=== PATIENT | female | born 1980 | race Caucasian/White ===

== ENCOUNTER 2019-08-24 09:31 | Emergency (ER) | payer MEDICAID, SELFPAY ==
[2019-08-24 09:33] VITALS: BP 148/92; PULSE 89; RESP 16; TEMP 36.8; O2SAT 98; BMI 22.6
--- NOTE | 2019-08-24 10:34 | HMH.EDHA ---
ED Disposition Clinical Impression: Headache, Infected dental carries, Abscessed tooth Disposition: Home, Self-Care Condition on Discharge: Good Prescriptions: clindamycin HCL [Clindamycin HCl 300mg Cap] 300 mg PO Q6 10 Days #40 cap Transmission Status: Pending to [facility] Nabumetone 750 mg PO BID 10 Days #20 tab Transmission Status: Pending to [facility] Acetaminophen with Codeine [Tylenol with Codeine #3 tablet] 1 each PO QID 3 Days #12 tablet Tizanidine HCl [Zanaflex 4mg tablet] 4 mg PO TID 10 Days #30 tab Transmission Status: Pending to [facility] Referrals: Kristian Alvares MD [Primary Care Provider] - - Critical Care Critical Care Time: No Attestation: On 08/24/19, the high probability of a clinically significant, sudden or life threatening deterioration of the following system(s) required my full and direct attention, intervention and personal management. The time I documented below is in addition to time spent performing reported procedures but includes the following listed in this critical care notation. Medical Decision Making - Medical Records Medical records reviewed: Yes: I reviewed the patient's medical records. - Randal Inquiry Pt receiving controlled substance: No Vital Signs: 08/24/19 09:33 Temperature 98.3 F Temperature Source Oral Pulse Rate [Right Radial] 89 Respiratory Rate 16 Blood Pressure [Right Arm] 148/92 H Blood Pressure Mean [Right Arm] 110 Blood Pressure Source [Right Arm] Automatic Cuff Blood Pressure Position [Right Arm] Sitting 02 Sat by Pulse Oximetry 98 Oxygen Delivery Method Room Air - Lab Data Lab results reviewed: Yes: I reviewed the patient's lab results. Headache HPI - General Chief Complaint: Headache Stated Complaint: headache above right eye Time Seen by Provider: 08/24/19 10:34 Mode of Arrival: Ambulatory Source of Information: Patient Limitations: No Limitations Description of Symptoms (Recalled from ER Triage Doc. by RN): C/O RT SIDE PAGE X3 DAYS - History of Present Illness HPI Narrative: A pleasant 39-year-old female presents the ED with acute onset of headache and right-sided jaw pain. Patient states about a year ago she did have 1 of her wisdom teeth pulled and since then she has noticed some draining over the last 3 to 4 days she is noticed significant draining with some purulent material as well and then she woke up yesterday with a slight headache and is progressively gotten worse as the days gone on this is on the right temporal area just adjacent to the maxillary area where she had a tooth pulled. She rates her pain 10 out of 10 presently she classifies it as sharp and a pressure-like sensation and she describes no alleviating factors. Exacerbating factors do include movement chewing and bright lights. SomewhatPatient denies any recent cough or shortness of breath, patient denies any sore throat or headache, patient denies any loss of taste or smell, patient denies any malaise or fatigue, patient denies any abdominal pain nausea vomiting or diarrhea. - Related Data Previous Rx's Medication Instructions Recorded Ondansetron [Zofran 4mg ODT] 4 mg PO Q8HP PRN #20 tab.rapdis 03/04/19 Ibuprofen [Ibuprofen 800mg 800 mg PO TIDP PRN #30 tab 06/07/19 Tablet] Methocarbamol [Robaxin 500mg Tab] 500 mg PO TIDP PRN #30 tab 06/07/19 Acetaminophen with Codeine 1 each PO QID 3 Days #12 tablet 08/24/19 [Tylenol with Codeine #3 tablet] Nabumetone 750 mg PO BID 10 Days #20 tab 08/24/19 Tizanidine HCl [Zanaflex 4mg 4 mg PO TID 10 Days #30 tab 08/24/19 tablet] clindamycin HCL [Clindamycin HCl 300 mg PO Q6 10 Days #40 cap 08/24/19 300mg Cap] Allergies Allergy/AdvReac Type Severity Reaction Status Date / Time No Known Allergies Allergy Verified 08/18/18 12:40 [facility] History - Hepatitis A Screen Drug use history?: No High risk sexual behaviors?: No History of sexually tr
[2019-08-24 11:00] VITALS: BP 132/89; PULSE 87; RESP 16; TEMP 36.8; O2SAT 100
== END 2019-08-24 11:04 | disposition home or self-care (01) ==
PROVIDERS: Emergency Provider Family Medicine; PCP Family Medicine
DX: K04.7 Periapical abscess without sinus (principal); J45.909 Unspecified asthma, uncomplicated; R51 Headache; F17.210 Nicotine dependence, cigarettes, uncomplicated; Z79.899 Other long term (current) drug therapy
CPT/HCPCS: 99281

== ENCOUNTER 2019-11-30 17:31 | Emergency (ER) | payer OTHER, SELFPAY ==
[2019-11-30 18:01] VITALS: BP 137/91; PULSE 78; RESP 20; TEMP 36.6; O2SAT 99; BMI 22.6
--- NOTE | 2019-11-30 18:40 | HMH.EDUTC ---
[facility] Disposition Clinical Impression: Upper respiratory infection Qualifiers: URI type: unspecified URI Qualified Code(s): J06.9 - Acute upper respiratory infection, unspecified Disposition: Home, Self-Care Condition on Discharge: Good Instructions: Sore Throat, DI for Sinusitis, Sinusitis Additional Instructions: *Monitor Temp, Over the counter Motrin or Tylenol as directed/as needed Tylenol every 4 hours and Motrin every 6 hours (as long as your family doctor has told you that you can take it) for fever or pain. and straight to ER if unable to lower temp less than 101.0 after medication given *Warm salt water gargles may help to soothe the throat *Throat Lozenges *Warm fluids like tea with honey may help to soothe the throat *Sleep elevated *Humidifier/Vaporizer *Flonase 2 sprays in each nostril daily but be aware that it may take 2-3 days before you notice improvement Follow up IMMEDIATELY for new or worsening symptoms or no Noticeable improvement over the next 48-72 hours. 911 for difficulty breathing or swallowing Prescriptions: Fluticasone Propionate [Flonase 50mcg nasal spray 16gm] 1 - 2 spr NS DAILY #1 bottle Transmission Status: [facility] methylPREDNISolone [Medrol 4mg tab] 4 mg PO DIRECTED #21 tab Transmission Status: Pending to [facility] Azithromycin [Z-Christian 250mg Tab] 250 mg PO DIRECTED #6 tab Transmission Status: Pending to [facility] Referrals: Kristian Alvares MD [Primary Care Provider] - As needed Forms: Work/School Release Time of Disposition: 18:44 Medical Decision Making - Randal Inquiry Pt receiving controlled substance: No Randal was queried for this patient: No Vital Signs: 11/30/19 18:01 Temperature 97.8 F Temperature Source Oral Pulse Rate [Right Brachial] 78 Respiratory Rate 20 Blood Pressure [Right Arm] 137/91 H Blood Pressure Mean [Right Arm] 106 Blood Pressure Source [Right Arm] Automatic Cuff Blood Pressure Position [Right Arm] Sitting 02 Sat by Pulse Oximetry 99 Oxygen Delivery Method Room Air [facility] HPI - General Stated complaint: Possible sinus infection Time Seen by Provider: 11/30/19 18:40 Mode of Arrival: Ambulatory Source of Information: Patient Limitations: No Limitations Description of Symptoms (Recalled from Triage Doc. by RN): PATIENT C/O SINUS PRESSURE/PAIN X 2 DAYS HEENT Symptoms (Recalled from RN notes): Yes Resp Symptoms (Recalled from RN notes): No Skin Symptoms (Recalled from RN notes): No MS Symptoms (Recalled from RN notes): No Functional Status (Recalled from RN notes): WNL - History of Present Illness Provider Complaint: Patient states that she feels like she has been fighting a sinus infection for the last week and for the last couple of days it has got worse States that she has been having sinus pain and pressure and sore throat States that she feels like it is getting worse and worried that it would turn into sinus infection so she came on in - Related Data Previous Rx's Medication Instructions Recorded Azithromycin [Z-Christian 250mg Tab] 250 mg PO DIRECTED #6 tab 11/30/19 Fluticasone Propionate [Flonase 1 - 2 spr NS DAILY #1 bottle 11/30/19 50mcg nasal spray 16gm] methylPREDNISolone [Medrol 4mg 4 mg PO DIRECTED #21 tab 11/30/19 tab] Allergies Allergy/AdvReac Type Severity Reaction Status Date / Time No Known Allergies Allergy Verified 08/18/18 12:40 - Worker's Comp Is this a Worker's Comp case?: No [facility] History - Hepatitis A Screen Drug use history?: No High risk sexual behaviors?: No History of sexually transmitted infection?: No Currently employed?: No Childcare worker?: No Do you have indoor plumbing?: Yes Do you have electricity?: Yes Attestation statement:: This patient has been screened for Hepatitis A risk factors. I have reviewed the patient's past medical history: Yes Medical History: Reports:: Asthma Denies:: Cancer, Diabetes Melli
[2019-11-30 18:48] VITALS: BP 137/91; PULSE 78; RESP 20; TEMP 36.6; O2SAT 99
== END 2019-11-30 18:49 | disposition home or self-care (01) ==
PROVIDERS: Emergency Provider Nurse Practitioner; PCP Family Medicine
DX: J06.9 Acute upper respiratory infection, unspecified (principal); J45.909 Unspecified asthma, uncomplicated; F17.210 Nicotine dependence, cigarettes, uncomplicated
CPT/HCPCS: 99201

== ENCOUNTER → 2019-12-24 17:06 | Outpatient (CLI) | payer OTHER, SELFPAY | PROVIDERS: PCP Family Medicine; Visit Provider Family Medicine | DX: R00.2 Palpitations (principal) | CPT/HCPCS: 93270 ==

== ENCOUNTER 2020-01-12 17:23 | Emergency (ER) | payer OTHER, SELFPAY ==
[2020-01-12 17:39] VITALS: BP 143/85; PULSE 88; RESP 18; TEMP 36.7; O2SAT 97; BMI 25.8
--- NOTE | 2020-01-12 17:41 | XR_ITS ---
PROCEDURE: XR CHEST 2V CLINICAL HISTORY: COUGH COMPARISON: No exams were available for comparison FINDINGS: The cardiomediastinal silhouette and pulmonary vascularity are within normal limits. No lobar consolidation or collapse. There is minimal nodular opacity noted in the left lower lung zone overlying the 9th rib possibly due to summation artifact or even nipple shadow. No acute bony abnormalities. IMPRESSION: No definite acute finding. Faint nodular opacity left lower lobe which could be due to developing nodule or nipple shadow. Follow-up chest may confirm stability Dictated by: Layo Dixon MD 01/12/2020 18:27 Layo Dixon MD in [place] 01/12/2020 18:27
--- NOTE | 2020-01-12 18:14 | HMH.EDUTC ---
[facility] Clinical Impression: Bronchitis Disposition: Home, Self-Care Condition on Discharge: Good Instructions: Acute Bronchitis, DI for Acute Bronchitis Additional Instructions: Drink plenty of fluids. Take tylenol or ibuprofen for pain or fever. Take the medications as directed. Follow up with your regular doctor. GO TO THE ER FOR ANY WORSENING SYMPTOMS Don't start the oral steroids until tomorrow, since you had the shot here today. The cough medication (promethazine dm) will make you drowsy, so don't drive or operate heavy machinery after taking it. Prescriptions: Promethazine/Dextromethorphan [Promethazine-Dm Syrup] 5 ml PO Q6HP PRN #240 syrup PRN Reason: Cough Transmission Status: Received by [facility] Amoxicillin/Potassium Clav [Augmentin 875-125 Tablet] 1 tab PO Q12H 10 Days #20 tab Transmission Status: Received by [facility] methylPREDNISolone [Medrol] 4 mg PO DIRECTED 6 Days #21 tab.ds.pk Transmission Status: Received by [facility] Referrals: Kristian Alvares MD [Primary Care Provider] - Forms: Work/School Release Time of Disposition: 18:31 Medical Decision Making - Medical Records Medical records reviewed: No: I reviewed the patient's medical records. - Randal Inquiry Pt receiving controlled substance: No Vital Signs: 01/12/20 17:39 01/12/20 18:32 Temperature 98.1 F 98.1 F Temperature Source Oral Oral Pulse Rate 88 Pulse Rate [Radial] 88 Respiratory Rate 18 18 Blood Pressure 143/85 H Blood Pressure [Right Arm] 143/85 H Blood Pressure Mean [Right Arm] 104 Blood Pressure Source Automatic Cuff Blood Pressure Source [Right Arm] Automatic Cuff Blood Pressure Position Sitting Blood Pressure Position [Right Arm] Sitting 02 Sat by Pulse Oximetry 97 Oxygen Delivery Method Room Air Room Air Orders (Tests/Meds): ED MEDICATIONS Discontinued Medications Generic Name Dose Route Start Last Admin Trade Name Freq PRN Reason Stop Dose Admin Ceftriaxone Sodium 1 gm 01/12/20 18:19 01/12/20 18:30 Ceftriaxone 1gm Vial IM 01/12/20 18:20 1 gm ONCE ONE Administration Protocol Lidocaine HCl 0 ml 01/12/20 18:19 01/12/20 18:30 Lidocaine 1% 5ml Pf Vial IM 01/12/20 18:20 2.1 ml ONCE ONE Administration Methylprednisolone Sodium Succinate 125 mg 01/12/20 18:19 01/12/20 18:30 Methylprednisolone Sod Succ 125mg Vial IM 01/12/20 18:20 125 mg ONCE ONE Administration [facility] [place] - General Stated complaint: Congestion Time Seen by Provider: 01/12/20 18:14 Mode of Arrival: Ambulatory Source of Information: Patient Limitations: No Limitations Description of Symptoms (Recalled from Triage Doc. by RN): was seen approx 2 weeks ago and was diagnosed with an URI. States that she felt as if she was getting better but now she is having pain when she breathes and still has a cough, denies any fever or other symptoms. HEENT Symptoms (Recalled from RN notes): No Resp Symptoms (Recalled from RN notes): Yes Skin Symptoms (Recalled from RN notes): No MS Symptoms (Recalled from RN notes): No Functional Status (Recalled from RN notes): wnl - History of Present Illness Provider Complaint: She states that over the past 3 days she has began to cough and have some wheezing. She has a history of asthma. She denies any fever or body aches. - Related Data Previous Rx's Medication Instructions Recorded Azithromycin [Z-Christian 250mg Tab] 250 mg PO DIRECTED #6 tab 11/30/19 Fluticasone Propionate [Flonase 1 - 2 spr NS DAILY #1 bottle 11/30/19 50mcg nasal spray 16gm] methylPREDNISolone [Medrol 4mg 4 mg PO DIRECTED #21 tab 11/30/19 tab] Amoxicillin/Potassium Clav 1 tab PO Q12H 10 Days #20 tab 01/12/20 [Augmentin 875-125 Tablet] Promethazine/Dextromethorphan 5 ml PO Q6HP PRN #240 syrup 01/12/20 [Promethazine-Dm Syrup] methylPREDNISolone [Medrol] 4 mg PO DIRECTED 6 Days #21 01/12/20 tab.ds.pk
[2020-01-12 18:32] VITALS: BP 143/85; PULSE 88; RESP 18; TEMP 36.7; O2SAT 97
== END 2020-01-12 18:42 | disposition home or self-care (01) ==
PROVIDERS: Emergency Provider Nurse Practitioner Family; PCP Family Medicine
DX: J20.9 Acute bronchitis, unspecified (principal); F17.210 Nicotine dependence, cigarettes, uncomplicated
CPT/HCPCS: 71046; 96372; 99202

== ENCOUNTER 2020-08-07 23:13 | Emergency (ER) | payer OTHER, SELFPAY ==
[2020-08-07 23:13] VITALS: BP 151/97; PULSE 83; RESP 18; TEMP 36.8; O2SAT 97; BMI 26.6
--- NOTE | 2020-08-07 23:24 | XR_ITS ---
PROCEDURE INFORMATION: Exam: XR Chest Exam date and time: 08/07/2020 11:24 PM Age: 40 years old Clinical indication: Cough and other: Congestion; Patient HX: Cough congestion TECHNIQUE: Imaging protocol: XR of the chest. Views: 2 views. COMPARISON: CR XR CHEST 2V 01/12/2020 5:47 PM FINDINGS: Lungs: Unremarkable. No consolidation. Pleural spaces: Unremarkable. No pleural effusion. No pneumothorax. Heart/Mediastinum: Unremarkable. No cardiomegaly. Bones/joints: Unremarkable. IMPRESSION: No acute findings.
[2020-08-07 23:30] VITALS: PULSE 108; PULSE 112
--- NOTE | 2020-08-08 00:44 | HMH.EDSOB ---
ED Disposition Clinical Impression: Bronchitis Disposition: Home, Self-Care Condition on Discharge: Good Instructions: DI for Acute Bronchitis Additional Instructions: fluids and see pcp for follow up Prescriptions: Cefdinir [Omnicef 300mg Capsule] 300 mg PO BID #14 cap Transmission Status: Pending to [facility] predniSONE [Prednisone 20mg Tab] 20 mg PO BID #10 tab Transmission Status: Pending to [facility] Referrals: Kristian Alvares MD [Primary Care Provider] - - Critical Care Critical Care Time: No Attestation: On 08/07/20, the high probability of a clinically significant, sudden or life threatening deterioration of the following system(s) required my full and direct attention, intervention and personal management. The time I documented below is in addition to time spent performing reported procedures but includes the following listed in this critical care notation. Medical Decision Making - Medical Records Medical records reviewed: Yes: I reviewed the patient's medical records. - Randal Inquiry Pt receiving controlled substance: No Vital Signs: 08/07/20 23:13 08/07/20 23:30 Temperature 98.3 F Temperature Source Oral Pulse Rate 108 H Pulse Rate [Right] 83 Respiratory Rate 18 Blood Pressure [Right Arm] 151/97 H Blood Pressure Mean [Right Arm] 115 02 Sat by Pulse Oximetry 97 - Lab Data Lab results reviewed: Yes: I reviewed the patient's lab results. Orders (Tests/Meds): ED MEDICATIONS Discontinued Medications Generic Name Dose Route Start Last Admin Trade Name Freq PRN Reason Stop Dose Admin Albuterol/Ipratropium 3 ml 08/07/20 23:25 08/07/20 23:29 Ipratropium/Albuterol 3 Ml Neb IH 08/07/20 23:26 3 ml ONCE ONE Administration Ceftriaxone Sodium 1 gm 08/08/20 01:12 08/08/20 01:17 Ceftriaxone 1gm Vial IM 08/08/20 01:13 1 gm ONCE ONE Administration Protocol Ceftriaxone Sodium 1 gm/ 50 mls @ 100 mls/hr 08/08/20 01:00 08/08/20 01:20 Sodium Chloride IV 08/22/20 00:59 Not Given Q24H CASSANDRA Protocol Lidocaine HCl 0 ml 08/08/20 01:12 08/08/20 01:18 Lidocaine 1% 5ml Pf Vial IM 08/08/20 01:13 2.1 ml ONCE ONE Administration Methylprednisolone Sodium Succinate 125 mg 08/07/20 23:29 08/08/20 00:08 Methylprednisolone Sod Succ 125mg Vial IM 08/07/20 23:30 125 mg ONCE ONE Administration - Radiology Data #1 Image(s): Chest Image Reviewed: Yes I reviewed the patient's radiology image Preliminary Findings: Normal/NAD Resp/SOB HPI - General Chief Complaint: Upper Respiratory Infection Stated Complaint: congestion,body aches, Time Seen by Provider: 08/08/20 00:00 Mode of Arrival: Ambulatory Source of Information: Patient, Medical Record Limitations: No Limitations Description of Symptoms (Recalled from ER Triage Doc. by RN): pt c/o head and chest congestion since yesterday morning - History of Present Illness uri sx and congestion over the last 24 hrs MD Complaint: shortness of breath, cough Onset (ago): day(s) Severity: moderate Associated symptoms: denies other symptoms Treatment prior to arrival: none - Related Data Home oxygen amount: none Home Medications Medication Instructions Recorded Confirmed Albuterol Sulfate [Proventil Hfa] 6.7 gm IH DAILY 08/07/20 08/07/20 Ipratropium/Albuterol Sulfate 2 puff IH QID 08/07/20 08/07/20 [Combivent Respimat Inh] Previous Rx's Medication Instructions Recorded Cefdinir [Omnicef 300mg Capsule] 300 mg PO BID #14 cap 08/08/20 predniSONE [Prednisone 20mg 20 mg PO BID #10 tab 08/08/20 Tab] Allergies Allergy/AdvReac Type Severity Reaction Status Date / Time No Known Allergies Allergy Verified 08/18/18 12:40 [facility] History - Hepatitis A Screen Drug use history?: No High risk sexual behaviors?: No History of sexually transmitted infection?: No Currently employed?: No Childcare worker?: No Do you mohr
[2020-08-08 01:46] VITALS: BP 139/87; PULSE 90; RESP 16; TEMP 36.8; O2SAT 98
== END 2020-08-08 01:48 | disposition home or self-care (01) ==
PROVIDERS: Emergency Provider Emergency Medicine; PCP Family Medicine
DX: J20.9 Acute bronchitis, unspecified (principal)
CPT/HCPCS: 71046; 96372; 99282

== ENCOUNTER 2020-10-01 18:33 | Emergency (ER) | payer OTHER, SELFPAY ==
[2020-10-01 18:34] VITALS: BP 165/92; PULSE 125; RESP 16; TEMP 36.9; O2SAT 96; BMI 27.9
--- NOTE | 2020-10-01 18:48 | HMH.EDGENADL ---
ED Disposition <Irena Flores - Last Filed: 10/01/20 18:48> Condition on Discharge: Good - Critical Care Critical Care Time: No <Adrian Farmer - Last Filed: 10/01/20 21:56> Clinical Impression: Atypical chest pain, Left flank pain Disposition: Home, Self-Care Additional Instructions: Follow-up with your primary care provider, call for appointment. A pulmonary nodule (spot on the lung) was discovered during your evaluation today. It is recommended that you follow-up with a primary care provider for further evaluation. Additional instructions for CHEST PAIN: See your physician as soon as possible for further evaluation. Return immediately if worsening chest pain, vomiting, shortness of breath, fever, coughing of blood. Referrals: Kristian Alvares MD [Primary Care Provider] - Attestation: On 10/01/20, the high probability of a clinically significant, sudden or life threatening deterioration of the following system(s) required my full and direct attention, intervention and personal management. The time I documented below is in addition to time spent performing reported procedures but includes the following listed in this critical care notation. Medical Decision Making - Randal Inquiry Pt receiving controlled substance: No - Lab Data Result diagrams: 10/01/20 19:30 10/01/20 19:30 - CT Data CT Scan: Abdomen, Pelvis Time Received: 21:[address] Reviewed: Yes: I have viewed the radiologist's interpretation <Adrian Farmer - Last Filed: 10/01/20 21:56> Vital Signs: 10/01/20 18:34 Temperature 98.5 F Temperature Source Oral Pulse Rate [Radial] 125 H Respiratory Rate 16 Blood Pressure [Right Radial Artery] 165/92 H Blood Pressure Mean [Right Radial Artery] 116 Blood Pressure Position [Right Radial Artery] Sitting 02 Sat by Pulse Oximetry 96 Oxygen Delivery Method Room Air - Lab Data Lab Results 10/01/20 18:40: Urine Color Yellow, Urine Appearance Clear, Urine pH 5.5, Ur Specific [place] <= 1.005, Urine Protein Negative, Urine Glucose (UA) Negative, Urine Ketones Negative, Urine Blood Negative, Urine Nitrate Negative, Urine Bilirubin Negative, Urine Urobilinogen 0.2, Ur Leukocyte Esterase Negative, Urine RBC 3-5, Urine WBC None, Ur Squamous Epith Cells 3-5, Urine Bacteria None 10/01/20 18:40: Urine Opiates Screen Negative, Urine Methadone Screen Negative, Ur Barbituates Screen Negative, Ur Phencyclidine Scrn Negative, Ur Amphetamines Screen Negative, U Benzodiazepines Scrn Negative, Urine Cocaine Screen Negative, U Marijuana (THC) Screen Negative 10/01/20 18:40: Urine HCG, Qual Negative 10/01/20 19:30: WBC 9.2, RBC 4.78, Hgb 14.5, Hct 42.2, MCV 88.3, MCH 30.3, MCHC 34.4, RDW 12.9, Plt Count 237, MPV 8.4, Neut % (Auto) 64.5, Lymph % (Auto) 23.4, [place] % (Auto) 6.9, Eos % (Auto) 4.3, Baso % (Auto) 0.8, Neut # (Auto) 6.0, Lymph # (Auto) 2.2, [place] # (Auto) 0.6, Eos # (Auto) 0.4, Baso # (Auto) 0.1 10/01/20 19:30: Sodium 139, Potassium 3.8, Chloride 108 H, Carbon Dioxide 21 L, Anion Gap 13.8, BUN 8, Creatinine 0.70, Estimated Creat Clear 135, Estimated GFR 94, Est GFR ( Amer) 113, Glucose 109 H, Calcium 9.1, Total Bilirubin 0.8, AST 57 H, ALT 22, Alkaline Phosphatase 87, Troponin I < 0.01, Total Protein 7.2, Albumin 4.6, Globulin 2.6, Albumin/Globulin Ratio 1.8, Amylase 78, Lipase 132 Orders (Tests/Meds): ED MEDICATIONS Generic Name Dose Route Start Last Admin Trade Name Freq PRN Reason Stop Dose Admin Sodium Chloride 1,000 mls @ 999 mls/hr 10/01/20 19:00 Sod Chlor 0.9% 1000ml Bag IV 10/01/20 20:00 .Q1H1M CASSANDRA Discontinued Medications Generic Name Dose Route Start Last Admin Trade Name Freq PRN Reason Stop Dose Admin Belladonna Alkaloids 60 ml 10/01/20 18:53 10/01/20 19:08 Gi Cocktail 60ml Udc PO 10/01/20 18:54 60 ml ONCE ONE Administration Ketorolac Tromethamine 30 mg 10/01/20 18:53 Ketorolac 30mg/Ml Vial IV 10/01/20 18:54 ONCE ONE Ondansetron HCl 4 mg
--- NOTE | 2020-10-01 18:51 | CT_ITS ---
PROCEDURE INFORMATION: Exam: CT Abdomen And Pelvis Without Contrast Exam date and time: 10/01/2020 6:51 PM Age: 40 years old Clinical indication: Abdominal pain; Prior surgery; Surgery date: 6+ months; Surgery type: Gb, c section, lithotripsy; Patient HX: Bilateral flank pain HX of kidney stones; Additional info: [place] pain TECHNIQUE: Imaging protocol: Computed tomography of the abdomen and pelvis without contrast. Radiation optimization: All CT scans at this facility use at least one of these dose optimization techniques: automated exposure control; mA and/or kV adjustment per patient size (includes targeted exams where dose is matched to clinical indication); or iterative reconstruction. COMPARISON: CR XR CHEST 2V 08/07/2020 11:29 PM FINDINGS: Lungs: Nonspecific left lower lobe 6 mm nodule on image 6 series 3. 5 mm left lower lobe nodule image 8 series 3. Minimal scarring in the lower lungs. Liver: Normal. No mass. Gallbladder and bile ducts: Gallbladder is absent. Pancreas: Normal. No ductal dilation. Spleen: Normal. No splenomegaly. Adrenal glands: Normal. No mass. Kidneys and ureters: Low attenuation renal lesions measuring up to 2.1 cm in diameter are incompletely characterized, but are likely cysts. No followup imaging is warranted. Nonobstructing left renal calculus. Stomach and bowel: Unremarkable. No obstruction. No mucosal thickening. Appendix: Unremarkable appendix. Intraperitoneal space: Trace free fluid in the pelvis, likely physiologic. Vasculature: Unremarkable. No abdominal aortic aneurysm. Lymph nodes: Unremarkable. No enlarged lymph nodes. Urinary bladder: Unremarkable as visualized. Reproductive: Unremarkable as visualized. Bones/joints: Unremarkable. No acute fracture. Soft tissues: Unremarkable. Other findings: Stigmata of old granulomatous disease. IMPRESSION: 1. No acute findings. 2. Nonobstructing left renal calculus. 3. Pulmonary nodules measuring up to 6 mm. For patients at low risk (minimal or absent history of smoking and of other known risk factors), recommend CT Chest at 3-6 months, then consider CT Chest at 18-24 months. For patients at high risk (history of smoking or of other known risk factors), recommend CT Chest at 3-6 months, then CT Chest at 18-24 months. (Reference: Ethan) COMMENTS: Consistent with the [employer]'s Incidental Findings Committee white paper (J Am Philly Radiol 2018): Any incidental renal lesion less than 1 cm or classified as too small to characterize, or any incidental cystic renal lesion characterized as simple-appearing, is likely benign. No follow-up imaging is recommended for these lesions per consensus recommendations based on imaging criteria. REFERENCES: Ethan Heard, et al. Guidelines for Management of Incidental Pulmonary Nodules Detected on CT Images: From the Fleischner Society 2017. Radiology. 2017;284(1):228-243.
[2020-10-01 19:12] LABS: Microscopic, Urine URINE MICROSCOPIC (MICROSCOPIC)
[2020-10-01 19:20] LABS: Appearance,Urine CLEAR (Clear); Bilirubin,Urine Negative (Negative); Blood, Urine Negative (Negative); Color,Urine YELLOW (Yellow); Glucose,Urine (UA) Negative (Negative); Ketones,Urine Negative (Negative); Leukocyte Esterase,Urine Negative (Negative); Nitrate,Urine Negative (Negative); PH,Urine 5.5 (5.0-8.5); Protein,Urine Negative (Negative); Specific Gravity, Urine <= 1.005 (1.005-1.030); Urobilinogen,Urine 0.2 EU/dl (0.2)
--- NOTE | 2020-10-01 19:30 | PC.NURSE ---
Meds would not scan; this RN gave pt medications of Zofran 4mg IVP, Toradol 30mg IVP, and NS 1,000ml bolus. Verified medications w/ L Suad BONILLA
[2020-10-01 19:32] LABS: Barbiturates Screen,Urine Negative ng/ml (<200)
[2020-10-01 19:33] LABS: Amphetamine/Metha Screen,Urine Negative ng/ml (<1000); Benzodiazepines Screen,Urine Negative ng/ml (<200)
[2020-10-01 19:34] LABS: Methadone Screen,Urine Negative ng/ml (<300)
[2020-10-01 19:35] LABS: Cannabinoid Screen,Urine Negative ng/ml (<50); Cocaine Screen,Urine Negative ng/ml (<300)
[2020-10-01 19:36] LABS: Opiate Screen,Urine Negative ng/ml (<300); Phencyclidine Screen,Urine Negative ng/ml (<25)
[2020-10-01 19:52] LABS: Basophils # 0.1 K/mm3 (0-0.2); Basophils % 0.8 % (0.1-2.0); Eosinophils # 0.4 K/mm3 (0.0-0.4); Eosinophils % 4.3 % (0.1-12.0); Hematocrit 42.2 % (37.0-47.0); Hemoglobin 14.5 g/dL (12.2-16.2); Lymphocytes # 2.2 K/mm3 (0.7-4.5); Lymphocytes % 23.4 % (10-50); Mean Corpuscular HGB Conc 34.4 g/dL (31.8-35.4); Mean Corpuscular Hemoglobin 30.3 pg (27.0-31.2); Mean Corpuscular Volume 88.3 fl (81-99); Mean Platelet Volume 8.4 fl (7.4-10.4); Monocytes # 0.6 K/mm3 (0.1-1.0); Monocytes % 6.9 % (1.7-9.3); Neutrophils % 64.5 % (37.0-80.0); Platelet Count 237 K/mm3 (142-424); Red Blood Count 4.78 M/mm3 (4.20-5.40); Red Cell Distribution Width 12.9 % (11.5-17.5); White Blood Count 9.2 K/mm3 (4.8-10.8)
[2020-10-01 19:59] LABS: Urine Pregnancy, HCG Qual. Negative (Negative)
[2020-10-01 20:01] LABS: Alanine Aminotransferase 22 U/L (12-78); Albumin Level 4.6 g/dl (3.5-5.0); Albumin/Globulin Ratio 1.8 (1.1-1.8); Alkaline Phosphatase 87 U/L (38-126); Amylase 78 U/L (30-110); Anion Gap 13.8 mEq/L (5-15); Aspartate Amino Transferase 57 U/L (14-36); Bilirubin,Total 0.8 mg/dl (0.2-1.3); Blood Urea Nitrogen 8 mg/dl (7-17); Calcium 9.1 mg/dl (8.4-10.2); Carbon Dioxide 21 mmol/L (22.0-30.0); Chloride 108 mmol/L (98-107); Creatinine Clearance Estimated 135 mL/min (50-200); Estimated Glomerular Filt Rate 94 ml/min (>60); GFR (African American) 113 ML/MIN (>60); Globulin 2.6 g/dL (1.3-3.2); Glucose 109 mg/dl (74-100); Lipase 132 U/L (23-300); Potassium 3.8 mmoL/L (3.5-5.1); Sodium 139 mmol/L (136-145); Total Protein,Serum 7.2 g/dl (6.3-8.2)
[2020-10-01 20:14] LABS: Troponin I < 0.01 ng/ml (0.00-0.034)
[2020-10-01 22:10] VITALS: BP 128/78; PULSE 86; RESP 17; TEMP 36.7; O2SAT 99
== END 2020-10-01 22:15 | disposition home or self-care (01) ==
PROVIDERS: Internal Medicine; Emergency Provider Emergency Medicine; PCP Family Medicine
DX: N20.0 Calculus of kidney (principal); R10.13 Epigastric pain; R07.89 Other chest pain; F17.210 Nicotine dependence, cigarettes, uncomplicated
CPT/HCPCS: 74176; 80053; 80305; 81001; 81025; 82150; 83690; 84484; 85025; 93005; 96365; 96375; 99283

== ENCOUNTER → 2020-10-25 14:46 | Outpatient (CLI) | payer OTHER, SELFPAY ==
--- NOTE | 2020-10-25 15:25 | PC.NURSE ---
Pt complete Pre and Post Spirometry without incident. Albuterol 0.083% given via HHN, per protocol, Pt tolerated well.
== END ==
PROVIDERS: PCP Family Medicine; Visit Provider Family Medicine
DX: R06.02 Shortness of breath (principal); F17.210 Nicotine dependence, cigarettes, uncomplicated
CPT/HCPCS: 94060

== ENCOUNTER 2020-12-04 15:19 | Emergency (ER) | payer OTHER, SELFPAY ==
[2020-12-04 15:40] VITALS: BP 152/106; PULSE 108; RESP 18; TEMP 36.8; O2SAT 99; BMI 25.8
--- NOTE | 2020-12-04 16:31 | HMH.EDUTC ---
[facility] [place] Impression: Paresthesia of skin Disposition: Home, Self-Care Condition on Discharge: Good Instructions: DI for Numbness/Tingling Additional Instructions: Drink plenty of fluids. Follow up with your primary care doctor. Take the vistaril for anxiety if you feel anxious. GO TO THE ER FOR ANY WORSENING SYMPTOMS OR CONCERNS Prescriptions: hydrOXYzine pamoate [Vistaril] 25 mg PO Q6HP PRN #30 cap PRN Reason: Anxiety Transmission Status: Received by [id number] Referrals: Kristian Alvares MD [Primary Care Provider] - Forms: Work/School Release Time of Disposition: 18:12 Medical Decision Making - Medical Records Medical records reviewed: No: I reviewed the patient's medical records. - Randal Inquiry Pt receiving controlled substance: No Vital Signs: 12/04/20 15:40 12/04/20 18:02 Temperature 98.2 F 98.2 F Temperature Source Oral Pulse Rate 108 H Pulse Rate [Right Brachial] 108 H Respiratory Rate 18 18 Blood Pressure 152/106 H Blood Pressure [Right Arm] 152/106 H Blood Pressure Mean [Right Arm] 121 Blood Pressure Source [Right Arm] Automatic Cuff Blood Pressure Position [Right Arm] Sitting 02 Sat by Pulse Oximetry 99 Oxygen Delivery Method Room Air - Lab Data Lab results reviewed: Yes: I reviewed the patient's lab results. Lab Results 12/04/20 17:17: WBC 9.5, RBC 4.68, Hgb 14.7, Hct 43.5, MCV 93.0, MCH 31.4 H, MCHC 33.8, RDW 12.4, Plt Count 325, MPV 9.4, Neut % (Auto) 71.7, Lymph % (Auto) 19.3, Pitt % (Auto) 6.3, Eos % (Auto) 1.6, Baso % (Auto) 1.1, Neut # (Auto) 6.8, Lymph # (Auto) 1.8, Pitt # (Auto) 0.6, Eos # (Auto) 0.2, Baso # (Auto) 0.1 12/04/20 17:17: Sodium 138, Potassium 3.5, Chloride 105, Carbon Dioxide 25, Anion Gap 11.5, BUN 5 L, Creatinine 0.70, Estimated Creat Clear 125, Estimated GFR 94, Est GFR ( Amer) 113, Glucose 87, Calcium 9.4 12/04/20 17:17: Vitamin B12 705 Result diagrams: 12/04/20 17:17 12/04/20 17:17 [facility] [place] - General Stated complaint: Tingling and numbness of face Time Seen by Provider: 12/04/20 16:31 Mode of Arrival: Ambulatory Source of Information: Patient Limitations: No Limitations Description of Symptoms (Recalled from Triage Doc. by RN): PATIENT C/O TINGLING TO LIPS AND FINGER TIPS AND PAIN BEHIND EYES THAT STARTED THIS MORNING AROUND 0600. HEENT Symptoms (Recalled from RN notes): Yes Resp Symptoms (Recalled from RN notes): No Skin Symptoms (Recalled from RN notes): No MS Symptoms (Recalled from RN notes): No Functional Status (Recalled from RN notes): WNL - History of Present Illness Provider Complaint: She states that since this morning she has had tingling around her lips and tingling on her finger tips. She has not had symptoms like this before that she can remember other than when she was child and she would get really anxious. She has been having anxiety recently related to someone close to her dying, but she does not feel like this is anxiety. The tingling is equal bilaterally. She denies any weakness or other symptoms. - Related Data Home Medications Medication Instructions Recorded Confirmed Albuterol Sulfate [Proventil Hfa] 6.7 gm IH DAILY 08/07/20 08/07/20 Ipratropium/Albuterol Sulfate 2 puff IH QID 08/07/20 08/07/20 [Combivent Respimat Inh] Previous Rx's Medication Instructions Recorded Cefdinir [Omnicef 300mg Capsule] 300 mg PO BID #14 cap 08/08/20 predniSONE [Prednisone 20mg 20 mg PO BID #10 tab 08/08/20 Tab] hydrOXYzine pamoate [Vistaril] 25 mg PO Q6HP PRN #30 cap 12/04/20 Allergies Allergy/AdvReac Type Severity Reaction Status Date / Time No Known Allergies Allergy Verified 08/18/18 12:40 - Worker's Comp Is this a Worker's Comp case?: No [facility] History - Hepatitis A Screen Drug use history?: No High risk sexual behaviors?: No History of sexually transmitted infection?: No Currently employed?: No Childcare worker?: No Do you have ind
[2020-12-04 17:51] LABS: Basophils # 0.1 K/mm3 (0-0.2); Basophils % 1.1 % (0.1-2.0); Eosinophils # 0.2 K/mm3 (0.0-0.4); Eosinophils % 1.6 % (0.1-12.0); Hematocrit 43.5 % (37.0-47.0); Hemoglobin 14.7 g/dL (12.2-16.2); Lymphocytes # 1.8 K/mm3 (0.7-4.5); Lymphocytes % 19.3 % (10-50); Mean Corpuscular HGB Conc 33.8 g/dL (31.8-35.4); Mean Corpuscular Hemoglobin 31.4 pg (27.0-31.2); Mean Platelet Volume 9.4 fl (7.4-10.4); Monocytes # 0.6 K/mm3 (0.1-1.0); Monocytes % 6.3 % (1.7-9.3); Neutrophils # 6.8 K/mm3 (1.8-7.8); Neutrophils % 71.7 % (37.0-80.0); Platelet Count 325 K/mm3 (142-424); Red Blood Count 4.68 M/mm3 (4.20-5.40); Red Cell Distribution Width 12.4 % (11.5-17.5); White Blood Count 9.5 K/mm3 (4.8-10.8)
[2020-12-04 17:52] LABS: Chloride 105 mmol/L (98-107); Potassium 3.5 mmoL/L (3.5-5.1); Sodium 138 mmol/L (136-145)
[2020-12-04 17:55] LABS: Anion Gap 11.5 mEq/L (5-15); Blood Urea Nitrogen 5 mg/dl (7-17); Calcium 9.4 mg/dl (8.4-10.2); Carbon Dioxide 25 mmol/L (22.0-30.0); Creatinine Clearance Estimated 125 mL/min (50-200); Estimated Glomerular Filt Rate 94 ml/min (>60); GFR (African American) 113 ML/MIN (>60); Glucose 87 mg/dl (74-100)
[2020-12-04 18:02] VITALS: BP 152/106; PULSE 108; RESP 18; TEMP 36.8; O2SAT 99
[2020-12-04 18:55] LABS: Vitamin B12 705 pg/mL (239-931)
== END 2020-12-04 18:17 | disposition home or self-care (01) ==
PROVIDERS: Emergency Provider Nurse Practitioner Family; PCP Family Medicine
DX: R20.2 Paresthesia of skin (principal); F17.210 Nicotine dependence, cigarettes, uncomplicated
CPT/HCPCS: 80048; 82607; 85025; 99202; G0463

== ENCOUNTER → 2021-03-22 13:56 | Outpatient (CLI) | payer OTHER, SELFPAY | PROVIDERS: PCP Family Medicine; Visit Provider Nurse Practitioner Family | DX: Z20.822 Contact with and (suspected) exposure to COVID-19 (principal); R05.1 Acute cough | CPT/HCPCS: C9803; U0003; U0005 ==

== ENCOUNTER 2021-04-18 08:59 | Emergency (ER) | payer SELFPAY ==
[2021-04-18 09:07] VITALS: BP 127/83; PULSE 108; RESP 16; TEMP 37.1; O2SAT 97; BMI 26.6
[2021-04-18 09:22] LABS: UTC Influenza A Antigen Negative (Negative)
[2021-04-18 09:23] LABS: UTC Influenza B Antigen Negative (Negative)
--- NOTE | 2021-04-18 09:31 | HMH.EDUTC ---
[facility] [place] Clinical Impression: Gastroenteritis, Viral syndrome Nausea & vomiting Qualifiers: Vomiting type: unspecified Qualified Code(s): R11.2 - Nausea with vomiting, unspecified Disposition: Home, Self-Care Condition on Discharge: Good Instructions: Viral Gastroenteritis, DI for Viral Gastroenteritis -- Adult, Ondansetron Additional Instructions: Drink plenty of fluids. Water or an electrolyte sports drink like gatorade would be best. Take tylenol or ibuprofen for pain or fever. Take the medications as directed. Follow up with your regular doctor. GO TO THE ER FOR ANY WORSENING SYMPTOMS Quarantine until you know the results of your covid-19 test. Notify your school or workplace of your results and follow their instructions regarding return to work/school. Prescriptions: Ondansetron [Zofran 4mg ODT] 4 mg PO Q8HP PRN #20 tab PRN Reason: Nausea Transmission Status: Pending to [id number] Dicyclomine HCl [Bentyl 10mg capsule] 10 mg PO BIDP PRN #20 cap PRN Reason: Cramping Transmission Status: Pending to [id number] Referrals: Kristian Alvares MD [Primary Care Provider] - Forms: Work/School Release Time of Disposition: 09:45 Medical Decision Making - Medical Records Medical records reviewed: No: I reviewed the patient's medical records. - Randal Inquiry Pt receiving controlled substance: No Vital Signs: 04/18/21 09:07 Temperature 98.8 F Temperature Source Oral Pulse Rate [Left] 108 H Respiratory Rate 16 Blood Pressure [Right Arm] 127/83 Blood Pressure Mean [Right Arm] 97 02 Sat by Pulse Oximetry 97 - Lab Data Lab results reviewed: Yes: I reviewed the patient's lab results. Lab Results 04/18/21 09:14: Influenza Type A Ag Negative, Influenza Type B Ag Negative Orders (Tests/Meds): ED MEDICATIONS Discontinued Medications Generic Name Dose Route Start Last Admin Trade Name Freq PRN Reason Stop Dose Admin Ondansetron HCl 4 mg 04/18/21 09:36 Ondansetron 4mg/2ml Vial IV 04/18/21 09:37 ONCE ONE ORDERS Category Date Time Status Amylase Stat Lab 04/18/21 09:30 Stop Req Complete Blood Count Auto Diff Stat Lab 04/18/21 09:30 Stop Req Comprehensive Metabolic Panel Stat Lab 04/18/21 09:30 Stop Req Covid-19 Nasal PCR ([facility]) Routine Lab 04/18/21 09:11 Received Lipase Stat Lab 04/18/21 09:30 Stop Req Medical Decision Narrative: She refused the IV n.s. 1 liter bolus and the blood work. She is well aware of appendicitis symptoms. She promises to return if she has worsening symptoms or any new symptoms. [facility] [place] HPI - General Stated complaint: vomiting, diarrhea, hoarseness Time Seen by Provider: 04/18/21 09:31 Mode of Arrival: Ambulatory Source of Information: Patient Limitations: No Limitations Description of Symptoms (Recalled from Triage Doc. by RN): pt c/o n/v/d and body aches since last night. HEENT Symptoms (Recalled from RN notes): No Resp Symptoms (Recalled from RN notes): No Skin Symptoms (Recalled from RN notes): No MS Symptoms (Recalled from RN notes): No Functional Status (Recalled from RN notes): wnl - History of Present Illness Provider Complaint: She states that at around 1930 last night, she started feeling bad all of a sudden. She had n/v/d, chills, low grade fever. She denies any sore throat. She denies any abdominal pain. She does still have her appendix. She was restless all night and could not sleep due to her n/v/d. This morning, she has continued to have n/v/d. She denies any chills or fever this morning. She has not been vaccinated against covid-19. She denies any known exposure to covid-19. She denies eating anything differnet than the rest of her family. And, no one else in her family is having these symptoms. - Related Data Home Medications Medication Instructions Recorded Confirmed Albuterol Sulfate [Proventil Hfa] 6.7 gm IH DAILY 08/07/20 08/07/20 Ipratropium/Albuterol S
[2021-04-18 09:45] VITALS: BP 127/83; PULSE 108; RESP 16; TEMP 37.1
[2021-04-18 10:16] LABS: Strep Scrn Group A (Rapid) Negative (Negative)
== END 2021-04-18 09:57 | disposition home or self-care (01) ==
PROVIDERS: Emergency Provider Nurse Practitioner Family; PCP Family Medicine
DX: K52.9 Noninfective gastroenteritis and colitis, unspecified (principal); B34.9 Viral infection, unspecified; J45.909 Unspecified asthma, uncomplicated; F17.210 Nicotine dependence, cigarettes, uncomplicated; Z20.822 Contact with and (suspected) exposure to COVID-19
CPT/HCPCS: 87430; 87804; 99203; C9803; G0463; U0003; U0005

== ENCOUNTER 2021-08-02 15:29 | Emergency (ER) | payer MEDICAID, SELFPAY ==
[2021-08-02 15:40] VITALS: BP 143/91; PULSE 86; RESP 19; TEMP 36.7; O2SAT 98; BMI 21.9
--- NOTE | 2021-08-02 16:03 | HMH.EDUTC ---
[facility] [place] Dis[place] Clinical Impression: Exposure to COVID-19 virus Disposition: Home, Self-Care Condition on Discharge: Good Instructions: DI for Viral Syndrome, DI for COVID-19 (Suspected or Confirmed ), Preventing the Spread of Coronavirus Discharge Instructions Additional Instructions: *Monitor Temp, Over the counter Motrin or Tylenol as directed/as needed Tylenol every 4 hours and Motrin every 6 hours (as long as your family doctor has told you that you can take it) for fever or pain. and straight to ER if unable to lower temp less than 101.0 after medication given *Warm salt water gargles may help to soothe the throat *Throat Lozenges *Warm fluids like tea with honey may help to soothe the throat *Sleep elevated *Humidifier/Vaporizer Follow up IMMEDIATELY for new or worsening symptoms or no Noticeable improvement over the next 48-72 hours. 911 for difficulty breathing or swallowing You were tested for today for COVID19 your test result should be back in the next 24-48 hours, you results should be available on the [facility] My Health Portal you can view them there Referrals: Betty Vasquez APRN [Primary Care Provider] - As needed Forms: Work/School Release Time of Disposition: 16:07 Medical Decision Making - Randal Inquiry Pt receiving controlled substance: No Randal was queried for this patient: No Vital Signs: 08/02/21 15:40 Temperature 98.1 F Temperature Source Oral Pulse Rate [Right Brachial] 86 Respiratory Rate 19 Blood Pressure [Right Arm] 143/91 H Blood Pressure Mean [Right Arm] 108 Blood Pressure Source [Right Arm] Automatic Cuff Blood Pressure Position [Right Arm] Sitting 02 Sat by Pulse Oximetry 98 Oxygen Delivery Method Room Air Orders (Tests/Meds): ORDERS Category Date Time Status Covid-19 Nasal PCR ([facility]) Routine Lab 08/02/21 15:40 Received [facility] [place] HPI - General Stated complaint: Covid exposed,PAGE,Weakness Time Seen by Provider: 08/02/21 16:04 Mode of Arrival: Ambulatory Source of Information: Patient Limitations: No Limitations Description of Symptoms (Recalled from Triage Doc. by RN): PATIENT C/O HEADACHE AND BODY ACHES SINCE YESTERDAY. RECENTLY EXPOSED TO COVID AT WORK HEENT Symptoms (Recalled from RN notes): Yes Resp Symptoms (Recalled from RN notes): No Skin Symptoms (Recalled from RN notes): No MS Symptoms (Recalled from RN notes): No Functional Status (Recalled from RN notes): WNL - History of Present Illness Provider Complaint: Patient states that she was around someone at work that tested positive for COVID States that she has been having headaches and body aches since yesterday so she wanted to come in and get tested - Related Data Home Medications Medication Instructions Recorded Confirmed Albuterol Sulfate [Proventil Hfa] 6.7 gm IH DAILY 08/07/20 07/12/21 Ipratropium/Albuterol Sulfate 2 puff IH QID 08/07/20 07/12/21 [Combivent Respimat Inh] Previous Rx's Medication Instructions Recorded sertraline 100 mg tablet 100 mg PO DAILY #90 tab 07/15/21 Allergies Allergy/AdvReac Type Severity Reaction Status Date / Time No Known Allergies Allergy Verified 07/12/21 15:04 - Worker's Comp Is this a Worker's Comp case?: No [facility] History - Hepatitis A Screen Attestation statement:: This patient has been screened for Hepatitis A risk factors. I have reviewed the patient's past medical history: Yes Medical History: Reports:: Asthma Denies:: Cancer, Diabetes Mellitus Type 1, Diabetes Mellitus Type 2, MRSA Amputation: No Fractures: No - Social History Smoking Status: Current every day smoker Tobacco Type: cigarettes # Packs/Day (cigarettes): 1 Alcohol Intake: never Occupational Status: other Housing: house ROS Obtained: Yes All systems reviewed & no additional complaints, Yes Systems reviewed as appropriate & no additional complaints - Constitutional Constitutional: Reports system reviewed and no additional complaints, except as Diego fitzgerald
[2021-08-02 16:09] VITALS: BP 143/91; PULSE 86; RESP 19; TEMP 36.7; O2SAT 98
== END 2021-08-02 16:15 | disposition home or self-care (01) ==
PROVIDERS: Emergency Provider Nurse Practitioner; PCP Nurse Practitioner Family
DX: Z20.822 Contact with and (suspected) exposure to COVID-19 (principal)
CPT/HCPCS: 99212; C9803; G0463; U0003; U0005

== ENCOUNTER → 2021-08-09 08:31 | Outpatient (CLI) | payer MEDICAID, SELFPAY ==
--- NOTE | 2021-08-09 08:34 | CT_ITS ---
FINAL REPORT TECHNIQUE: Axial CT images were performed from the lung apices through the upper abdomen. Coronal reformats were submitted. This study was performed with techniques to keep radiation doses as low as reasonably achievable (ALARA). Individualized dose reduction techniques using automated exposure control or adjustment of mA and/or kV according to the patient's size were employed. CLINICAL HISTORY: lung nodule COMPARISON: CT scan of the abdomen and pelvis dated October 01, 2020 FINDINGS: No axillary mass is noted. There are several borderline sized axillary lymph nodes. There is no hilar or mediastinal mass or adenopathy. Heart size is normal. There is no pericardial or pleural effusion. Limited images of the upper abdomen shows the patient is status post cholecystectomy. There is a left mid renal mass measuring 1.9 cm and cannot be accurately characterized without contrast. There is a small right renal mass which also cannot be accurately characterized. These were both present on the prior study. There is a nodule at the lateral left lower lobe was 8 mm, is now 6 mm. There is a nodule inferior to this measuring 5 mm, was 4 mm. There are several smaller adjacent nodules which are stable. There is no other mass or nodule seen. IMPRESSION: Clustered lateral left lower lobe nodules which are overall slightly larger and most likely inflammatory. If indicated, additional follow-up in 12 months. Bilateral low-attenuation renal masses which cannot be accurately characterized without contrast. Recommend renal mass CT or MRI for further evaluation. Reviewed, Interpreted and Dictated by Demetris Bhatia III, MD Transcribed by Kimberley Sanz Authenticated and [facility]
== END ==
PROVIDERS: PCP Nurse Practitioner Family; Visit Provider Nurse Practitioner Family
DX: R91.1 Solitary pulmonary nodule (principal)
CPT/HCPCS: 71250

== ENCOUNTER → 2021-08-30 09:43 | Outpatient (CLI) | payer MEDICAID, SELFPAY ==
--- NOTE | 2021-08-30 09:44 | CT_ITS ---
FINAL REPORT TECHNIQUE: Axial CT images of the abdomen were obtained with IV contrast only. Coronal reformatted images were also obtained. This study was performed with techniques to keep radiation doses as low as reasonably achievable (ALARA). Individualized dose reduction techniques using automated exposure control or adjustment of mA and/or kV according to the patient''s size were employed. CLINICAL HISTORY: Bilateral low-attenuation renal masses COMPARISON: 10/01/2020 FINDINGS: There is a stable nodule in the lateral left lower lobe. The liver has an unremarkable appearance, without evidence of mass. The patient is status post cholecystectomy. There is no evidence of biliary ductal dilatation. The pancreas appears normal. The spleen size is within normal limits. There are multiple masses in the right kidney, most appear to be simple cyst. A mass in the posterior lower pole measures 13 mm, previously measured 7 mm. There is questionable enhancement of its posterior aspect. In addition, there is a 21 mm left renal mass consistent with a cyst. There is no evidence of adenopathy. No abnormal fluid collection is seen. No localized inflammatory processes identified. Appendix is normal. IMPRESSION: Bilateral renal masses. Mass in the posterior pole of the right kidney does not appear to represent a simple cyst, renal neoplasm is not excluded. Recommend repeat dedicated renal mass protocol CT with noncontrast images or renal MRI. Reviewed, Interpreted and Dictated by Demetris Bhatia III, MD Transcribed by Betty Fragoso Authenticated and . [facility]
== END ==
PROVIDERS: PCP Nurse Practitioner Family; Visit Provider Nurse Practitioner Family
DX: N28.89 Other specified disorders of kidney and ureter (principal)
CPT/HCPCS: 74160; Q9967

== ENCOUNTER 2021-09-26 18:15 | Emergency (ER) | payer MEDICAID, SELFPAY ==
[2021-09-26 19:02] VITALS: BP 132/90; PULSE 102; RESP 19; TEMP 36.8; O2SAT 98; BMI 25.5
--- NOTE | 2021-09-26 19:12 | HMH.EDUTC ---
[facility] [place]ression: Low back pain Qualifiers: Chronicity: unspecified Back pain laterality: left Sciatica presence: with sciatica Sciatica laterality: sciatica of left side Qualified Code(s): M54.42 - Lumbago with sciatica, left side Disposition: Home, Self-Care Condition on Discharge: Good Instructions: Low Back Pain, DI for Low Back Pain, DI for Sciatica Additional Instructions: *Ibuprofen jesús 6 hours with meal as needed for pain/inflammation if your doctor has said that you can take it *Remember you had a Toradol shot in the clinic today, which is similar to Motrin *Not additional anti-inflammatory like motrin, aleve, advil with the above amount of ibuprofen. You can still take Tylenol every 4 hours as needed if you need something else for pain *Ice 20 minutes every 2 hours for the first 48 hours after the initial injury followed by moist heat every 20 minutes 3-4 times a day to affected area *Muscle relaxer every 8 hours as needed for muscle spasms but remember, it WILL cause drowsiness You cannot take it and drive, operate machinery or care for small children. *Keep this area active, no movement leads to more stiffness, However take it easy and avoid heavy lifting pushing or pulling *Follow up with you family doctor if no improvement for further treatment Prescriptions: Cyclobenzaprine HCl [Flexeril 10mg tablet] 10 mg PO Q8HP PRN #15 tab PRN Reason: Muscle Spasm Transmission Status: Received by [facility] methylPREDNISolone [Medrol 4mg tab] 4 mg PO DIRECTED #21 tab Transmission Status: Received by [facility] Referrals: Mann Talley APRN [Primary Care Provider] - As needed Forms: Work/School Release Time of Disposition: 19:21 Medical Decision Making - Randal Inquiry Pt receiving controlled substance: No Randal was queried for this patient: No Vital Signs: 09/26/21 19:02 Temperature 98.3 F Temperature Source Oral Pulse Rate [Left] 102 H Respiratory Rate 19 Blood Pressure [Right Arm] 132/90 Blood Pressure Mean [Right Arm] 104 02 Sat by Pulse Oximetry 98 Orders (Tests/Meds): ED MEDICATIONS Discontinued Medications Generic Name Dose Route Start Last Admin Trade Name Freq PRN Reason Stop Dose Admin Ketorolac Tromethamine 60 mg 09/26/21 19:15 09/26/21 19:30 Ketorolac 60mg/2ml Vial IM 09/26/21 19:16 60 mg ONCE ONE Administration Methylprednisolone Sodium Succinate 125 mg 09/26/21 19:15 09/26/21 19:29 Methylprednisolone Sod Succ 125mg Vial IM 09/26/21 19:16 125 mg ONCE ONE Administration ORDERS Category Date Time Status Covid-19 Nasal PCR ([facility]) Routine Lab 09/26/21 18:40 [place] [facility] [place] - General Stated complaint: WC 09/19@0600 injured back Time Seen by Provider: 09/26/21 19:12 Mode of Arrival: Ambulatory Source of Information: Patient Limitations: No Limitations Description of Symptoms (Recalled from Triage Doc. by RN): patient comes in for back pain. located in lower middle and left of back. numbness in left leg. HEENT Symptoms (Recalled from RN notes): No Resp Symptoms (Recalled from RN notes): No Skin Symptoms (Recalled from RN notes): No MS Symptoms (Recalled from RN notes): Yes Functional Status (Recalled from RN notes): n/a - History of Present Illness Provider Complaint: Patient states that she hurt her back a couple days ago at work lifting some boxes and felt something joanne her lower back State that now she is still having low back pain on her left lower back going into buttock area and left leg States that she went to work this morning and tried to lift and it made it worse so she came in Denies loss of control of bowel or bladder States that had a positive Home test and she wanted to get tested for COVID too - Related Data Home Medications Medication Instructions Recorded Confirmed Albuterol Sulfate [Proventil Hfa] 6.7 gm IH DAILY 08/07/20 07/12/21 Ipratropium/Albuterol Sulfate 2 puff IH QID
[2021-09-26 19:39] VITALS: BP 132/90; PULSE 102; RESP 19; TEMP 36.8
== END 2021-09-26 19:46 | disposition home or self-care (01) ==
PROVIDERS: Emergency Provider Nurse Practitioner; PCP Nurse Practitioner Family
DX: M54.42 Lumbago with sciatica, left side (principal); Y93.89 Activity, other specified; Y99.0 Civilian activity done for income or pay
CPT/HCPCS: 96372; 99212; C9803; G0463; U0003; U0005

== ENCOUNTER → 2021-09-28 08:54 | Outpatient (CLI) | payer MEDICAID, SELFPAY ==
--- NOTE | 2021-09-28 08:54 | MR_ITS ---
FINAL REPORT TECHNIQUE: Multiplanar and multisequence imaging was obtained before and after the intravenous injection of gadolinium contrast. CLINICAL HISTORY: Mass in the posterior pole of the right kidney abnormal ct scan 15 ml prohance given COMPARISON: CT abdomen and pelvis dated 08/30/2021 FINDINGS: The liver is homogeneous, without focal hepatic lesion. The gallbladder is absent. The spleen is normal in size and signal intensity. The adrenal glands are without acute abnormality. The pancreas demonstrates no mass or surrounding signal abnormality. There are bilateral T2 hyperintense renal lesions. On the diffusion-weighted imaging, there is a focus of restricted diffusion on series 12.3, image 86, with decreased signal intensity on the ADC map. This does not correlate to any of the T2 hyperintense lesions. It does correlate to a T1 hyperintense lesion measuring 6 mm on the he contrast T1 images. This could represent a proteinaceous cyst or hemorrhagic cyst. There is no hydronephrosis. Limited evaluation of the GI tract is without acute abnormality. There is no abdominal lymphadenopathy or ascites. Postcontrast images reveal no convincing abnormal enhancement to the renal lesions. A discrete, solid enhancing lesion is not identified at the area of question on recent CT. Remaining solid organs enhance normally. IMPRESSION: Bilateral renal cysts. A discrete solid mass is not identified at the area of question on recent CT. Consider follow-up MRI in 6 months. Reviewed, Interpreted and Dictated by Kristi Garsia MD Transcribed by Selina Farias Authenticated and [facility]
== END ==
PROVIDERS: PCP Nurse Practitioner Family; Visit Provider Nurse Practitioner Family
DX: N28.89 Other specified disorders of kidney and ureter (principal)
CPT/HCPCS: 74183; A9576

== ENCOUNTER 2021-10-04 12:16 | Emergency (ER) | payer MEDICAID, SELFPAY ==
[2021-10-04] VITALS (9 sets, daily range): BP systolic 116–158; BP diastolic 85–106; PULSE 90–105; RESP 15–18; TEMP 36.8; O2SAT 96–99; BMI 26.9
--- NOTE | 2021-10-04 12:16 | ECG_ITS ---
APPROVED REPORT Exam: Resting ECG HR:103 bpm ECG Measurements Heart Rate 103 AXES WV 142 P 69 QRSd 68 QRS 64 QT 326 T 60 QTc 386 Conclusion SINUS TACHYCARDIA LEFT ATRIAL ENLARGEMENT [-0.15mV P-WAVE IN V1/V2] SEPTAL MYOCARDIAL INFARCTION , OF INDETERMINATE AGE [40+ ms Q WAVE IN V1/V2] ABNORMAL ECG UNCONFIRMED REPORT Electronically signed by : Kristian Quijano MD 10/06/2021 09:36:07
--- NOTE | 2021-10-04 12:23 | XR_ITS ---
FINAL REPORT CLINICAL HISTORY: chest pain, SOA, recent covid patient states she vapes COMPARISON: 08/07/2020 FINDINGS: Two views of the chest were obtained. The heart size and pulmonary vascularity are within normal limits. The mediastinum is normal. No acute pulmonary abnormality is identified. There is no pneumothorax. The bony thorax is intact. IMPRESSION: No active cardiopulmonary disease. Reviewed, Interpreted and Dictated by Demetris Bhatia III, MD Transcribed by Keith Aragon Authenticated and [facility]
--- NOTE | 2021-10-04 12:26 | PC.NURSE ---
ECG obtained, labs sent, June RN attempting IV access with success
--- NOTE | 2021-10-04 12:31 | PC.NURSE ---
rad notified of xray order
--- NOTE | 2021-10-04 12:35 | PC.NURSE ---
cycled pressure for updated vital signs
--- NOTE | 2021-10-04 12:37 | PC.NURSE ---
pt to RAD for CXR
[2021-10-04 12:38] LABS: Chloride 106 mmol/L (98-107)
[2021-10-04 12:39] LABS: Potassium 4.5 mmoL/L (3.5-5.1); Sodium 136 mmol/L (136-145)
--- NOTE | 2021-10-04 12:40 | PC.NURSE ---
pt back for RAD
[2021-10-04 12:42] LABS: Anion Gap 11.5 mEq/L (5-15); Blood Urea Nitrogen 12 mg/dl (7-17); Calcium 9.8 mg/dl (8.4-10.2); Carbon Dioxide 23 mmol/L (22.0-30.0); Creatinine Clearance Estimated 113 mL/min (50-200); Estimated Glomerular Filt Rate 80 ml/min (>60); GFR (African American) 97 ML/MIN (>60); Glucose 106 mg/dl (74-100)
--- NOTE | 2021-10-04 12:47 | PC.NURSE ---
new purple top sent to lab at this time, lab states initial purple tube was hemolyzed. pt resting in bed, offered blanket-pt declined. Call light within reach.
[2021-10-04 12:54] LABS: Troponin I < 0.01 ng/ml (0.00-0.034)
--- NOTE | 2021-10-04 12:54 | HMH.EDGENADL ---
ED Disposition Clinical Impression: Pneumonia due to COVID-19 virus Disposition: Home, Self-Care Condition on Discharge: Good Instructions: DI for COVID-19 (Suspected or Confirmed ) Additional Instructions: Rest, drink plenty of fluids. Tylenol or Ibuprofen for fever and/or aches and pains. Monitor your symptoms. IF YOU HAVE AN EMERGENCY WARNING SIGN (INCLUDING TROUBLE BREATHING), SEEK EMERGENCY MEDICAL CARE IMMEDIATELY. Referrals: Provider,Referral, [Referring] - - Critical Care Critical Care Time: No Attestation: On 10/04/21, the high probability of a clinically significant, sudden or life threatening deterioration of the following system(s) required my full and direct attention, intervention and personal management. The time I documented below is in addition to time spent performing reported procedures but includes the following listed in this critical care notation. Medical Decision Making - Randal Inquiry Pt receiving controlled substance: No Vital Signs: 10/04/21 12:18 10/04/21 12:34 10/04/21 12:47 Temperature 98.3 F Temperature Source Oral Pulse Rate 104 H 105 H Pulse Rate [Apical] 102 H Respiratory Rate 18 16 16 Blood Pressure 134/98 H 131/96 H Blood Pressure [Right Arm] 158/106 H Blood Pressure Mean 110 106 Blood Pressure Mean [Right Arm] 123 Blood Pressure Source [Right Arm] Automatic Cuff Blood Pressure Position [Right Arm] Sitting 02 Sat by Pulse Oximetry 96 96 97 Oxygen Delivery Method Room Air 10/04/21 13:17 10/04/21 13:47 10/04/21 14:17 Temperature Temperature Source Pulse Rate 102 H 104 H 92 H Pulse Rate [Apical] Respiratory Rate 16 16 18 Blood Pressure 127/96 H 133/97 H 116/85 Blood Pressure [Right Arm] Blood Pressure Mean 105 105 95 Blood Pressure Mean [Right Arm] Blood Pressure Source [Right Arm] Blood Pressure Position [Right Arm] 02 Sat by Pulse Oximetry 98 97 98 Oxygen Delivery Method 10/04/21 14:47 10/04/21 15:49 Temperature Temperature Source Pulse Rate 102 H 90 Pulse Rate [Apical] Respiratory Rate 18 15 Blood Pressure 143/101 H 142/98 H Blood Pressure [Right Arm] Blood Pressure Mean 109 112 Blood Pressure Mean [Right Arm] Blood Pressure Source [Right Arm] Blood Pressure Position [Right Arm] 02 Sat by Pulse Oximetry 99 98 Oxygen Delivery Method - Lab Data Lab Results 10/04/21 12:24: Sodium 136, Potassium 4.5, Chloride 106, Carbon Dioxide 23, Anion Gap 11.5, BUN 12, Creatinine 0.80, Estimated Creat Clear 113, Estimated GFR 80, Est GFR ( Amer) 97, Glucose 106 H, Calcium 9.8, Troponin I < 0.01 10/04/21 12:24: D-Dimer 1.13 H 10/04/21 12:44: WBC 5.7, RBC 4.83, Hgb 14.7, Hct 45.9, MCV 95.0, MCH 30.4, MCHC 32.0, RDW 13.0, Plt Count 208, MPV 8.7, Neut % (Auto) 59.2, Lymph % (Auto) 27.7, [place] % (Auto) 8.7, Eos % (Auto) 3.1, Baso % (Auto) 1.2, Neut # (Auto) 3.4, Lymph # (Auto) 1.6, [place] # (Auto) 0.5, Eos # (Auto) 0.2, Baso # (Auto) 0.1 10/04/21 15:31: Troponin I < 0.01 Result diagrams: 10/04/21 12:44 10/04/21 12:24 Orders (Tests/Meds): ED MEDICATIONS Generic Name Dose Route Start Last Admin Trade Name Freq PRN Reason Stop Dose Admin Sodium Chloride 10 ml 10/04/21 12:23 Sodium Chloride 0.9% 10ml Flush Syringe IV 11/03/21 12:22 NEEDED PRN Maintain IV Site Sodium Chloride 10 ml 10/04/21 15:38 10/04/21 15:07 Sodium Chloride 0.9% 10ml Syr (Rad Only) IV 11/03/21 15:37 10 ml NEEDED PRN Administration Maintain IV Site Discontinued Medications Generic Name Dose Route Start Last Admin Trade Name Freq PRN Reason Stop Dose Admin Iopamidol 70 ml 10/04/21 15:38 10/04/21 15:07 Iopamidol-370 (76%);100ml Bottle IV 10/04/21 15:39 70 ml ONCE ONE Administration Sodium Chloride 20 ml 10/04/21 15:38 10/04/21 15:07 0.9% Sodium Chloride 20ml Vial IV 10/04/21 15:39 20 ml ONCE ONE Administration Sodium Chloride 20 ml 10/04/21 15:41
[2021-10-04 12:59] LABS: Basophils # 0.1 K/mm3 (0-0.2); Basophils % 1.2 % (0.1-2.0); Eosinophils # 0.2 K/mm3 (0.0-0.4); Eosinophils % 3.1 % (0.1-12.0); Hematocrit 45.9 % (37.0-47.0); Hemoglobin 14.7 g/dL (12.2-16.2); Lymphocytes # 1.6 K/mm3 (0.7-4.5); Lymphocytes % 27.7 % (10-50); Mean Corpuscular Hemoglobin 30.4 pg (27.0-31.2); Mean Platelet Volume 8.7 fl (7.4-10.4); Monocytes # 0.5 K/mm3 (0.1-1.0); Monocytes % 8.7 % (1.7-9.3); Neutrophils # 3.4 K/mm3 (1.8-7.8); Neutrophils % 59.2 % (37.0-80.0); Platelet Count 208 K/mm3 (142-424); Red Blood Count 4.83 M/mm3 (4.20-5.40); White Blood Count 5.7 K/mm3 (4.8-10.8)
[2021-10-04 13:56] LABS: D-Dimer 1.13 ug/mL (0.0-0.5)
--- NOTE | 2021-10-04 14:13 | CT_ITS ---
FINAL REPORT TECHNIQUE: Then section axial CT images of the chest were obtained with contrast. Three-D reformatted images were also obtained.This study was performed with techniques to keep radiation doses as low as reasonably achievable (ALARA). Individualized dose reduction techniques using automated exposure control or adjustment of mA and/or kV according to the patient''s size were employed. CLINICAL HISTORY: cp, soa, elev d-dimer FINDINGS: There is no evidence of pulmonary embolism. There is no evidence of thoracic aortic aneurysm or dissection. There are multiple borderline size mediastinal, hilar and axillary lymph nodes that are nonspecific. There is mild bronchial wall thickening consistent with bronchitis. There is mild patchy ground-glass opacity that could represent edema or pneumonia. There are several noncalcified left lower lobe nodules measuring up to 7 mm. Limited images of the upper abdomen are unremarkable. IMPRESSION: No pulmonary embolism. Mild patchy ground-glass opacity could represent edema or pneumonia. Noncalcified left lower lobe nodules. If indicated, follow-up CT in 6 months. Reviewed, Interpreted and Dictated by Demetris Bhatia III, MD Transcribed by Keith Aragon Authenticated and [facility]
--- NOTE | 2021-10-04 14:32 | PC.NURSE ---
rounded on pt, no needs at this time. family at bs
--- NOTE | 2021-10-04 15:25 | PC.NURSE ---
lab in room to draw 2nd TROP
--- NOTE | 2021-10-04 15:30 | PC.NURSE ---
re cycled vitals
--- NOTE | 2021-10-04 15:37 | PC.NURSE ---
rounded on pt at this time, pt sitting up in bed on phone, visitor at BS. Will continue to monitor
[2021-10-04 16:01] LABS: Troponin I < 0.01 ng/ml (0.00-0.034)
== END 2021-10-04 16:35 | disposition home or self-care (01) ==
PROVIDERS: Emergency Provider Emergency Medicine; PCP Nurse Practitioner Family
DX: R07.9 Chest pain, unspecified (principal); U07.1 COVID-19; R06.02 Shortness of breath; R50.9 Fever, unspecified; R53.82 Chronic fatigue, unspecified; R00.1 Bradycardia, unspecified; F17.290 Nicotine dependence, other tobacco product, uncomplicated; J45.909 Unspecified asthma, uncomplicated; Z79.51 Long term (current) use of inhaled steroids; Z79.52 Long term (current) use of systemic steroids
CPT/HCPCS: 71046; 71275; 80048; 84484; 85025; 85378; 93005; 99285; Q9967

== ENCOUNTER → 2022-08-14 23:33 | Outpatient (CLI) | payer OTHER, SELFPAY ==
[2022-08-14 17:53] LABS: Basophils % 0.3 % (0.1-2.0); Eosinophils # 0.6 K/mm3 (0.0-0.4); Eosinophils % 7.6 % (0.1-12.0); Hematocrit 41.1 % (37.0-47.0); Hemoglobin 13.2 g/dL (12.2-16.2); Lymphocytes # 2.1 K/mm3 (0.7-4.5); Lymphocytes % 25.1 % (10-50); Mean Corpuscular HGB Conc 32.2 g/dL (31.8-35.4); Mean Corpuscular Hemoglobin 29.5 pg (27.0-31.2); Mean Corpuscular Volume 91.8 fl (81-99); Mean Platelet Volume 8.8 fl (7.4-10.4); Monocytes # 0.6 K/mm3 (0.1-1.0); Monocytes % 6.7 % (1.7-9.3); Neutrophils # 5.1 K/mm3 (1.8-7.8); Neutrophils % 60.3 % (37.0-80.0); Platelet Count 297 K/mm3 (142-424); Red Blood Count 4.47 M/mm3 (4.20-5.40); Red Cell Distribution Width 12.5 % (11.5-17.5); White Blood Count 8.5 K/mm3 (4.8-10.8)
[2022-08-14 18:00] LABS: Alanine Aminotransferase 24 U/L (12-78); Albumin Level 4.6 g/dl (3.5-5.0); Albumin/Globulin Ratio 1.8 (1.1-1.8); Alkaline Phosphatase 105 U/L (38-126); Anion Gap 12.9 mEq/L (5-15); Aspartate Amino Transferase 31 U/L (14-36); Bilirubin,Indirect 0.6 mg/dL (0.0-0.9); Bilirubin,Total 0.6 mg/dl (0.2-1.3); Bilirubin,Unconjugated 0.7 mg/dL (0.0-1.1); Blood Urea Nitrogen 15 mg/dl (7-17); Calcium 9.2 mg/dl (8.4-10.2); Carbon Dioxide 28 mmol/L (22.0-30.0); Chloride 102 mmol/L (98-107); Chol/HDL Ratio 2.2 (1-3.5); Cholesterol 180 mg/dl (140-200); Estimated Glomerular Filt Rate 55 ml/min (>60); GFR (African American) 67 ML/MIN (>60); Globulin 2.5 g/dL (1.3-3.2); Glucose 95 mg/dl (74-100); HDL Cholesterol 81 mg/dl (40-60); Potassium 3.9 mmoL/L (3.5-5.1); Sodium 139 mmol/L (136-145); Total Protein,Serum 7.1 g/dl (6.3-8.2); Triglycerides 92 mg/dl (30-150); VLDL Cholesterol 18 mg/dL (0-40)
[2022-08-14 18:10] LABS: Hemoglobin A1C 4.8 % (4.0-6.0)
[2022-08-14 18:12] LABS: Direct LDL Cholesterol 77.43 mg/dL (100-129)
[2022-08-14 18:19] LABS: Free T4 (Free Thyroxine) 1.14 ng/dl (0.78-2.19)
[2022-08-14 18:31] LABS: Thyroid Stimulating Hormone 1.14 uIU/mL (0.465-4.68)
== END ==
PROVIDERS: PCP Nurse Practitioner Family; Visit Provider Nurse Practitioner Family
DX: O09.291 Supervision of pregnancy with other poor reproductive or obstetric history, first trimester (principal); Z13.1 Encounter for screening for diabetes mellitus; Z13.220 Encounter for screening for lipoid disorders; Z13.29 Encounter for screening for other suspected endocrine disorder; R51.9 Headache, unspecified
CPT/HCPCS: 80053; 80061; 80076; 83036; 84439; 84443; 85025

== ENCOUNTER 2023-05-04 12:14 | Emergency (ER) | payer OTHER, SELFPAY ==
[2023-05-04 13:05] VITALS: BP 136/82; PULSE 91; RESP 20; TEMP 37.3; O2SAT 98; BMI 29.7
[2023-05-04 13:28] LABS: UTC Influenza A Antigen Negative (Negative); UTC Influenza B Antigen Negative (Negative)
--- NOTE | 2023-05-04 13:29 | EXP.UTC ---
Discharge Plan Disposition Patient Disposition: Home, Self-Care Condition: Good Prescriptions Prescriptions: No Action sertraline 100 mg tablet See Rx Instructions .ROUTE .COMPLEX Qty: 90 0RF Dose Instruction: TAKE 1 TABLET BY MOUTH DAILY Rx Instructions: TAKE 1 TABLET BY MOUTH DAILY Referrals Follow up/Referrals: Mann Talley APRN [Primary Care Provider] - See instructions Activity Restrictions/Add. Instructions Additional Instructions/Restrictions: *Monitor Temp, Over the counter Motrin or Tylenol as directed/as needed Tylenol every 4 hours and Motrin every 6 hours (as long as your family doctor has told you that you can take it) for fever or pain. and straight to ER if unable to lower temp less than 101.0 after medication given *Warm salt water gargles may help to soothe the throat *Throat Lozenges? *Warm fluids like tea with honey may help to soothe the throat? *Sleep elevated *Humidifier/Vaporizer *Your throat swab was sent for culture. Those results are typically sent to your primary care. Be sure to follow up in 2-3 days with your family doctor/primary care physician if no improvement so they can review those result and treat if necessary. If you don?t have a primary care doctor, I recommend you get one but in the mean time, you will have to return to a walk in clinic Follow up IMMEDIATELY for new or worsening symptoms or no Noticeable improvement over the next 48-72 hours. 911 for difficulty breathing or swallowing You were tested for today for COVID19 your test result should be back in the next 24hours, you may check your results on the [facility] My Health Portal, if you are positive contact your employer to see their COVID Guidelines, CDC now recommends that you can return to work if you are fever free for 24 hrs without medication and symptoms improving Clinical Impressions Clinical Impression: Viral syndrome Stand Alone Forms Stand Alone Forms: Work/School Release Instructions Patient Instructions: DI for Viral Syndrome, DI for Fever (Symptom) -- Adult Discharge ED Provider: Ginny Olivares [facility] [place] HPI General Stated complaint: body aches, congestion Mode of Arrival: Ambulatory Source of Information: Patient Limitations: No Limitations Time Seen by Provider: 05/04/23 13:29 Description of Symptoms (Recalled from Triage Doc. by RN): PATIENT C/O BODY ACHES, CONGESTION, AND HEADACHE SINCE YESTERDAY HEENT Symptoms (Recalled from RN notes): Yes Resp Symptoms (Recalled from RN notes): No Skin Symptoms (Recalled from RN notes): No MS Symptoms (Recalled from RN notes): No Functional Status (Recalled from RN notes): WNL History of Present Illness Provider Complaint: Patient states that she started feeling bad yesterday with body aches, chills, nasal congestion and headache States today she was feeling worse worried she may have the flu or something and her eyes was watering so she came in to get checked Related Data Previous Rx's Medication Instructions Recorded sertraline 100 mg tablet See Rx Instructions .Route 01/10/23 .COMPLEX #90 tabs Allergies Allergy/AdvReac Type Severity Reaction Status Date / Time No Known Allergies Allergy Verified 08/14/22 14:54 Worker's Comp Is this a Worker's Comp case?: No [facility] Disclaimer: The information contained in this section may have been updated after the patient was seen, as this information can be updated by other users. Medical History (Updated 05/04/23 @ 13:57 by Ginny Olivares APRN) Abscessed tooth Atypical chest pain Bronchitis Dehydration Exposure to COVID-19 virus Infected dental carries Pneumonia due to COVID-19 virus Upper respiratory infection Viral syndrome Vomiting and diarrhea Weakness Social History Smoking Status: Current every day smoker tobacco type: cigarettes packs per day: 1 second hand exposure: Yes alcohol intake: never current occupational status: other Travel in the last 8 weeks: None housing: house ROS Obtained: Yes All systems reviewed & no additional complaints except as documented and Yes Systems reviewed as appropriate & no additional complaints except as documented Constitutional Constitutional: Reports system reviewed and no additional complaints, except as documented, Reports as per HPI, Reports body ache, Reports chills, Reports fever(s) and Reports headache(s) ENT Ears, Nose, Mouth, and Throat: Reports system reviewed and no additional complaints, except as documented, Reports as per HPI, Reports headache(s), Reports nasal congestion and Reports sore throat Cardiovascular Cardiovascular: Reports system reviewed and no additional complaints, except as documented and Reports as per HPI Neurologic Neurologic: Reports headache(s) Physical Exam General General appearance: alert and in no apparent distress ENT ENT exam: Present mucous membranes moist Expanded ENT Exam Nose exam: Absent sinus tenderness Throat exam: Present tonsillar erythema Respiratory Respiratory exam: Present normal lung sounds bilaterally; Absent respiratory distress or wheezes Cardiovascular Cardiovascular exam: Present regular rate, normal rhythm and normal heart sounds Abdominal Exam Abdominal exam: Present soft and normal bowel sounds; Absent distention or tenderness Neurological Exam Neurological exam: Present alert, oriented X3 and normal gait Medical Decision Making Randal Inquiry Pt receiving controlled substance: No Randal was queried for this patient: No Vital Signs: 05/04/23 13:05 Temperature 99.1 F Temperature Source Oral Pulse Rate [Left Brachial] 91 H Respiratory Rate 20 Blood Pressure [Left Arm] 136/82 Blood Pressure Mean [Left Arm] 100 Blood Pressure Source [Left Arm] Automatic Cuff Blood Pressure Position [Left Arm] Sitting 02 Sat by Pulse Oximetry 98 Oxygen Delivery Method Room Air Lab Data Lab results reviewed: Yes I reviewed the patient's lab results. Lab Results 05/04/23 13:28: Influenza Type A Ag Negative, Influenza Type B Ag Negative
[2023-05-04 13:51] LABS: Adenovirus,PCR Not Detected (NotDetected); Coronavirus 229E Not Detected (NotDetected); Coronavirus NL63 Not Detected (NotDetected); Coronavirus OC43 Not Detected (NotDetected); Coronovirus HKU1,PCR Not Detected (NotDetected); Human Metapneumovirus Not Detected (NotDetected); Influenza A, PCR Not Detected (NotDetected); Influenza AH1, 2009 Not Detected (NotDetected); Influenza AH1, PCR Not Detected (NotDetected); Influenza AH3,PCR Not Detected (NotDetected); Influenza B, PCR Not Detected (NotDetected); Parainfluenza 1, PCR Not Detected (NotDetected); Parainfluenza 2, PCR Not Detected (NotDetected); Parainfluenza 3, PCR Not Detected (NotDetected); Parainfluenza 4, PCR Not Detected (NotDetected); Respiratory Syncytial Virus Not Detected (NotDetected); Rhinovirus/Enterovirus Not Detected (NotDetected)
[2023-05-04 14:00] VITALS: BP 136/82; PULSE 91; RESP 20; TEMP 37.3; O2SAT 98
[2023-05-04 15:23] LABS: Coronavirus 19, PCR Detected (NotDetected)
[2023-05-04 19:02] LABS: UTC Strep Screen (Rapid) Negative (Negative)
== END 2023-05-04 14:03 | disposition home or self-care (01) ==
PROVIDERS: Emergency Provider Nurse Practitioner; PCP Nurse Practitioner Family
DX: U07.1 COVID-19 (principal); R51.9 Headache, unspecified; R50.9 Fever, unspecified; R09.81 Nasal congestion; R07.0 Pain in throat; F17.210 Nicotine dependence, cigarettes, uncomplicated
CPT/HCPCS: 87632; 87635; 87804; 87880; 99212; 99214; G0463

== ENCOUNTER 2023-10-21 16:52 | Emergency (ER) | payer OTHER, SELFPAY ==
[2023-10-21 17:40] VITALS: BP 154/92; PULSE 105; RESP 22; TEMP 36.9; O2SAT 99; BMI 27.4
--- NOTE | 2023-10-21 18:05 | EXP.UTC ---
Discharge Plan Disposition Patient Disposition: Home, Self-Care Condition: Good Prescriptions Prescriptions: New azithromycin [Zithromax] 250 mg tablet 250 mg PO UD DOSE PK Qty: 6 0RF Rx Instructions: Take two (2) tablets today, then one (1) tablet days #2 thru #5 methylprednisolone 4 mg Tablets,Dose Pack 4 mg PO DIRECTED 6 Days Qty: 21 0RF Rx Instructions: Take 1 pack as directed for 6 days [id number] [Bromfed DM] 2-30-10 mg/5 mL Syrup 5 ml PO Q6H PRN (Reason: Cough) Qty: 240 0RF No Action sertraline 100 mg tablet See Rx Instructions .ROUTE .COMPLEX Qty: 90 0RF Dose Instruction: TAKE 1 TABLET BY MOUTH DAILY Rx Instructions: TAKE 1 TABLET BY MOUTH DAILY Referrals Follow up/Referrals: Mann Talley APRN [Primary Care Provider] - See instructions Activity Restrictions/Add. Instructions Additional Instructions/Restrictions: Drink plenty of fluids. Take tylenol or ibuprofen for pain or fever. Take the medications as directed. Follow up with your regular doctor. GO TO THE ER FOR ANY WORSENING SYMPTOMS Clinical Impressions Clinical Impression: Pharyngitis, Acute viral syndrome Stand Alone Forms Stand Alone Forms: Work/School Release Instructions Patient Instructions: Sore Throat, DI for Pharyngitis/Tonsillopharyngitis -- Adult, DI for Viral Syndrome Print Language Print Language: Congolese Discharge ED Provider: Nixon Crooks [facility] [place] General Stated complaint: Sore throat,body aches,congestion,runny nose Mode of Arrival: Ambulatory Source of Information: Patient Limitations: No Limitations Time Seen by Provider: 10/21/23 17:51 Description of Symptoms (Recalled from Triage Doc. by RN): PATIENT C/O RUNNY NOSE, CONGESTION, SORE THROAT AND FEVER THAT STARTED YESTERDAY MORNING HEENT Symptoms (Recalled from RN notes): Yes Resp Symptoms (Recalled from RN notes): No Skin Symptoms (Recalled from RN notes): No MS Symptoms (Recalled from RN notes): No Functional Status (Recalled from RN notes): WNL Related Data Previous Rx's ?Medication ?Instructions ?Recorded sertraline 100 mg tablet See Rx Instructions .Route 01/10/23 .COMPLEX #90 tabs azithromycin 250 mg tablet 250 mg PO UD DOSE PK #6 tabs 10/21/23 (Zithromax) [id number] 5 ml PO Q6H PRN Cough #240 mL 10/21/23 2 mg-30 mg-10 mg/5 mL oral syrup (Bromfed DM) methylprednisolone 4 mg tablets in 4 mg PO DIRECTED 6 days #21 tabs 10/21/23 a dose pack Allergies Allergy/AdvReac Type Severity Reaction Status Date / Time No Known Allergies Allergy Verified 08/14/22 14:54 Worker's Comp Is this a Worker's Comp case?: No [facility]: The information contained in this section may have been updated after the patient was seen, as this information can be updated by other users. Medical History (Updated 10/21/23 @ 18:30 by Nixon Crooks APRN) Pneumonia due to COVID-19 virus Exposure to COVID-19 virus Viral syndrome Atypical chest pain Upper respiratory infection Abscessed tooth Infected dental carries Vomiting and diarrhea Dehydration Weakness Bronchitis Social History Smoking Status: Current every day smoker tobacco type: cigarettes packs per day: 1 second hand exposure: Yes alcohol intake: never current occupational status: other Travel in the last 8 weeks: None housing: house ROS Obtained: Yes All systems reviewed & no additional complaints except as documented Constitutional Constitutional: Reports chills and Reports fever(s) Eyes Eyes: Denies eye discharge ENT Ears, Nose, Mouth, and Throat: Reports as per HPI Cardiovascular Cardiovascular: Denies chest pain Respiratory Respiratory: Denies chest congestion and Reports cough Gastrointestinal Gastrointestingal: Reports nausea; Denies abdominal pain, constipation, cramping, diarrhea or vomiting Musculoskeletal Musculoskeletal: Denies arthralgias Integumentary/Breasts Skin/Breast: Denies rash Neurologic Neurologic: Denies paresthesias Physical Exam General General appearance: alert and in no apparent distress Head Head exam: atraumatic, normocephalic and normal inspection Eye Eye exam: Present normal appearance, PERRL and EOMI ENT ENT exam: Present mucous membranes moist and normal external ear exam Expanded ENT Exam TM/Canal exam: Bilateral TM: erythema and bulging Nose exam: Absent sinus tenderness Mouth exam: Present normal external inspection; Absent drooling Teeth exam: Present normal inspection Throat exam: Present tonsillar erythema, tonsillomegaly and tonsillar exudate Neck Neck exam: Present normal inspection, full ROM and trachea midline; Absent tenderness, meningismus or lymphadenopathy Chest Chest inspection: Present normal inspection and symmetric chest wall rise; Absent tenderness Respiratory Respiratory exam: Present normal lung sounds bilaterally; Absent respiratory distress, wheezes, stridor or accessory muscle use Cardiovascular Cardiovascular exam: Present regular rate and normal rhythm; Absent systolic murmur or diastolic murmur Abdominal Exam Abdominal exam: Present soft and normal bowel sounds; Absent distention, tenderness, guarding, rebound or rigidity Extremities Exam Extremities exam: Present normal inspection and normal capillary refill; Absent calf tenderness Back Exam Back exam: Present normal inspection and full ROM; Absent tenderness, CVA tenderness (R) or CVA tenderness (L) Neurological Exam Neurological exam: Present alert, oriented X3 and CN II-XII intact Psychiatric Psychiatric exam: Present normal affect and normal mood Skin Skin exam: Present warm, dry, intact and normal color Medical Decision Making Medical Records Medical records reviewed: No I reviewed the patient's medical records. Randal Inquiry Pt receiving controlled substance: No Vital Signs: 10/21/23 17:40 Temperature 98.4 F Temperature Source Oral Pulse Rate [Left Brachial] 105 H Respiratory Rate 22 Blood Pressure [Left Arm] 154/92 H Blood Pressure Mean [Left Arm] 112 Blood Pressure Source [Left Arm] Automatic Cuff Blood Pressure Position [Left Arm] Sitting 02 Sat by Pulse Oximetry 99 Oxygen Delivery Method Room Air Lab Data Lab results reviewed: Yes I reviewed the patient's lab results.
[2023-10-21 18:06] LABS: UTC Strep Screen (Rapid) Negative (Negative)
[2023-10-21 18:32] VITALS: BP 154/92; PULSE 105; RESP 22; TEMP 36.9; O2SAT 99
== END 2023-10-21 18:34 | disposition home or self-care (01) ==
PROVIDERS: Emergency Provider Nurse Practitioner Family; PCP Nurse Practitioner Family
DX: J02.9 Acute pharyngitis, unspecified (principal); R50.9 Fever, unspecified; R09.81 Nasal congestion
CPT/HCPCS: 87635; 87880; 99212; 99214; G0463

== ENCOUNTER 2024-02-13 14:39 | Emergency (ER) | payer OTHER, SELFPAY ==
[2024-02-13 15:38] VITALS: BP 116/71; PULSE 78; RESP 18; TEMP 36.7; O2SAT 98; BMI 26.3
[2024-02-13 15:54] LABS: UTC Strep Screen (Rapid) Negative (Negative)
--- NOTE | 2024-02-13 16:14 | ED_ITS ---
Discharge Plan Disposition Patient Disposition: Home, Self-Care Condition: Good Prescriptions Prescriptions: New azithromycin [Zithromax] 250 mg tablet 250 mg PO UD DOSE PK Qty: 6 0RF Rx Instructions: Take two (2) tablets today, then one (1) tablet days #2 thru #5 benzonatate 100 mg capsule 100 mg PO TIDP PRN (Reason: Cough) Qty: 30 0RF methylprednisolone 4 mg Tablets,Dose Pack 4 mg PO DIRECTED 6 Days Qty: 21 0RF Rx Instructions: Take 1 pack as directed for 6 days Referrals Follow up/Referrals: Kristian Alvares MD [Primary Care Provider] - See instructions Activity Restrictions/Add. Instructions Additional Instructions/Restrictions: Drink plenty of fluids. Take tylenol or ibuprofen for pain or fever. Take the medications as directed. Follow up with your regular doctor. GO TO THE ER FOR ANY WORSENING SYMPTOMS Clinical Impressions Clinical Impression: Sinusitis Stand Alone Forms Stand Alone Forms: Work/School Release Instructions Patient Instructions: Sinusitis, DI for Sinusitis Print Language Print Language: [place] Discharge ED Provider: Nixon Crooks [facility] General Stated complaint: CONGESTION, SORE THROAT Mode of Arrival: Ambulatory Source of Information: Patient Time Seen by Provider: 02/13/24 15:51 Description of Symptoms (Recalled from Triage Doc. by RN): CONGESTION, SORE THROAT, LOST VOICE, RUNNY NOSE HEENT Symptoms (Recalled from RN notes): Yes Resp Symptoms (Recalled from RN notes): Yes Skin Symptoms (Recalled from RN notes): No MS Symptoms (Recalled from RN notes): No Functional Status (Recalled from RN notes): WNL Related Data Previous Rx's ?Medication ?Instructions ?Recorded azithromycin 250 mg tablet 250 mg PO UD DOSE PK #6 tabs 02/13/24 (Zithromax) benzonatate 100 mg capsule 100 mg PO TIDP PRN Cough #30 caps 02/13/24 methylprednisolone 4 mg tablets in 4 mg PO DIRECTED 6 days #21 tabs 02/13/24 a dose pack Allergies Allergy/AdvReac Type Severity Reaction Status Date / Time No Known Allergies Allergy Verified 08/14/22 14:54 Worker's Comp Is this a Worker's Comp case?: No [facility] Disclaimer: The information contained in this section may have been updated after the patient was seen, as this information can be updated by other users. Medical History (Updated 02/13/24 @ 16:34 by Nixon Crooks APRN) Pneumonia due to COVID-19 virus Exposure to COVID-19 virus Viral syndrome Atypical chest pain Upper respiratory infection Abscessed tooth Infected dental carries Vomiting and diarrhea Dehydration Weakness Bronchitis Social History Smoking Status: Current every day smoker tobacco type: cigarettes packs per day: 1 second hand exposure: Yes alcohol intake: never current occupational status: other Travel in the last 8 weeks: None housing: house Have you lived/traveled outside [place] in past 30 days?: No Contact w/someone who lives/traveled outside [place] past 30 days?: No Exposure to someone with infectious disease in past 14 days?: No Do you have a fever (greater than 100.4 F or 38 C)?: No Have you tested positive for COVID-19: No Exposed to someone with COVID-19 in past 14 days?: No Do you have a sore throat?: No Do you have a cough?: No Do you have any weakness?: No Do you have any diarrhea?: No Are you experiencing any unusual bleeding?: No Do you have any muscle aches/pain?: No Do you have any abdominal pain?: No Are you experiencing loss of taste or smell?: No ROS Obtained: Yes All systems reviewed & no additional complaints except as documented Constitutional Constitutional: Reports poor appetite Eyes Eyes: Reports system reviewed and no additional complaints, except as documented ENT Ears, Nose, Mouth, and Throat: Reports as per HPI Cardiovascular Cardiovascular: Reports system reviewed and no additional complaints, except as documented and Denies chest pain Respiratory Respiratory: Denies shortness of breath, Denies chest congestion, Reports cough, Denies stridor and Denies wheezing Gastrointestinal Gastrointestingal: Reports system reviewed and no additional complaints, except as documented; Denies abdominal pain, diarrhea or vomiting Musculoskeletal Musculoskeletal: Reports system reviewed and no additional complaints, except as documented and Denies arthralgias Integumentary/Breasts Skin/Breast: Reports system reviewed and no additional complaints, except as documented and Denies rash Neurologic Neurologic: Denies paresthesias Allergic/Immunologic Allergic/Immunologic: Denies wheezing Physical Exam General General appearance: alert and in no apparent distress Head Head exam: atraumatic, normocephalic and normal inspection Eye Eye exam: Present normal appearance, PERRL and EOMI ENT ENT exam: Present normal exam, normal oropharynx, mucous membranes moist, TM's normal bilaterally and normal external ear exam Neck Neck exam: Present normal inspection, full ROM and trachea midline; Absent meningismus or lymphadenopathy Chest Chest inspection: Present normal inspection and symmetric chest wall rise; Absent tenderness Respiratory Respiratory exam: Present normal lung sounds bilaterally; Absent respiratory distress Cardiovascular Cardiovascular exam: Present regular rate and normal rhythm; Absent JVD Abdominal Exam Abdominal exam: Present soft and normal bowel sounds; Absent distention, tenderness or guarding Extremities Exam Extremities exam: Present normal inspection, full ROM and normal capillary refill; Absent calf tenderness Back Exam Back exam: Present normal inspection; Absent tenderness Neurological Exam Neurological exam: Present alert and oriented X3 Psychiatric Psychiatric exam: Present normal affect and normal mood Skin Skin exam: Present warm, dry, intact and normal color Lymphatic Lymphatic Findings: no adenopathy Medical Decision Making Medical Records Medical records reviewed: No I reviewed the patient's medical records. Screening: Per USPSTF and CDC recommendations, given the prevalence of disease in our region, it is our hospital?s policy to screen for HIV and viral Hepatitis for all patients aged 18 and over and those with ongoing risk factors. Randal Inquiry Pt receiving controlled substance: No Vital Signs: 02/13/24 15:38 Temperature 98.1 F Temperature Source Oral Pulse Rate [Left Brachial] 78 Respiratory Rate 18 Blood Pressure [Left Arm] 116/71 Blood Pressure Mean [Left Arm] 86 02 Sat by Pulse Oximetry 98 Lab Data Lab results reviewed: Yes I reviewed the patient's lab results. Lab Results 02/13/24 15:41: Strep Scn Rapid Clinic Negative Orders (Tests/Meds): ORDERS Category Date Time Status Strep Screen Confirmation Stat Micro 02/13/24 15:41 Received
[2024-02-13 16:34] VITALS: BP 116/71; PULSE 78; RESP 18; TEMP 36.7
== END 2024-02-13 16:36 | disposition home or self-care (01) ==
PROVIDERS: Emergency Provider Nurse Practitioner Family; PCP Family Medicine
DX: J01.90 Acute sinusitis, unspecified (principal)
CPT/HCPCS: 87880; 99213; G0381

== ENCOUNTER 2024-02-27 22:33 | Emergency (ER) | payer OTHER, SELFPAY ==
[2024-02-27 22:34] VITALS: BP 160/100; PULSE 113; RESP 17; TEMP 36.7; O2SAT 99; BMI 25.8
--- NOTE | 2024-02-27 22:38 | CT_ITS ---
PROCEDURE INFORMATION: Exam: CTA Neck With Contrast Exam date and time: 02/27/2024 11:09 PM Age: 43 years old Clinical indication: Stroke-like symptoms; Bilateral facial droop; Additional info: Possible stroke TECHNIQUE: Imaging protocol: Computed tomographic angiography of the neck with contrast. Exam focused on the cervical segments of the vasculature. 3D rendering (Not supervised by radiologist): MIP and/or 3D reconstructed images were created by the technologist. Radiation optimization: All CT scans at this facility use at least one of these dose optimization techniques: automated exposure control; mA and/or kV adjustment per patient size (includes targeted exams where dose is matched to clinical indication); or iterative reconstruction. Contrast material: ISOUVE 370; Contrast volume: 80 ml; Contrast route: INTRAVENOUS (IV); COMPARISON: CT ANGIO HEAD 02/27/2024 11:09 PM FINDINGS: Right common carotid artery: No stenosis. No dissection or occlusion. Right internal carotid artery: No significant stenosis. No dissection or occlusion. Right external carotid artery: No occlusion or stenosis of the origin. Left common carotid artery: No stenosis. No dissection or occlusion. Left internal carotid artery: No significant stenosis. No dissection or occlusion. Left external carotid artery: No occlusion or stenosis of the origin. Right vertebral artery: No stenosis. No dissection or occlusion. Left vertebral artery: No stenosis. No dissection or occlusion. Soft tissues: Normal. No significant soft tissue swelling. Bones/joints: No acute fracture. IMPRESSION: Unremarkable examination with no significant stenosis, dissection, or occlusion. REFERENCES: NASCET CRITERIA. The degree of stenosis in the cervical segment of the internal carotid artery is based on NASCET criteria. Normal is no stenosis. Mild is less than 50% stenosis. Moderate is 50-69% stenosis. Severe is 70% to 99% stenosis. Total occlusion is no detectable patent lumen.
--- NOTE | 2024-02-27 22:38 | XR_ITS ---
PROCEDURE INFORMATION: Exam: XR Chest Exam date and time: 02/27/2024 11:06 PM Age: 43 years old Clinical indication: Other: Olmedo's palsy TECHNIQUE: Imaging protocol: Radiologic exam of the chest. Views: 1 view. COMPARISON: CR XR CHEST PORTABLE 02/27/2024 11:06 PM FINDINGS: Lungs: Unremarkable. No consolidation. There is no focal mass. Pleural spaces: Unremarkable. No pleural effusion. No pneumothorax. Heart/Mediastinum: Unremarkable. No cardiomegaly. Bones/joints: Unremarkable. There is no acute fracture present. IMPRESSION: No evidence for acute cardiac or pulmonary process.
--- NOTE | 2024-02-27 22:38 | CT_ITS ---
PROCEDURE INFORMATION: Exam: CT Head Without Contrast Exam date and time: 02/27/2024 11:01 PM Age: 43 years old Clinical indication: Stroke-like symptoms; Bilateral facial droop; Additional info: Possible stroke TECHNIQUE: Imaging protocol: Computed tomography of the head without contrast. Radiation optimization: All CT scans at this facility use at least one of these dose optimization techniques: automated exposure control; mA and/or kV adjustment per patient size (includes targeted exams where dose is matched to clinical indication); or iterative reconstruction. Other technique: STROKE PROTOCOL was implemented. COMPARISON: CT HEAD/BRAIN WO CON 02/27/2024 11:01 PM FINDINGS: Brain: Normal. No hemorrhage. Age appropriate white matter. No mass effect. No focal mass. The sow-white matter junction is intact. Cerebral ventricles: No ventriculomegaly. Paranasal sinuses: Visualized sinuses are unremarkable. No fluid levels. Mastoid air cells: Visualized mastoid air cells are well aerated. Bones: Unremarkable. No acute fracture. Soft tissues: Unremarkable. IMPRESSION: Unremarkable noncontrast examination of brain. There is no hemorrhage or mass. There is no large infarction seen. ASSESSMENT: ASPECTS ([place] Stroke Program Early CT Score) is 10.
--- NOTE | 2024-02-27 22:38 | CT_ITS ---
PROCEDURE INFORMATION: Exam: CTA Head With Contrast, Arteriography Exam date and time: 02/27/2024 11:09 PM Age: 43 years old Clinical indication: Stroke-like symptoms; Bilateral facial droop; Additional info: Possible stroke TECHNIQUE: Imaging protocol: Computed tomographic angiography of the head with contrast. Exam focused on the arteries. 3D rendering (Not supervised by radiologist): MIP and/or 3D reconstructed images were created by the technologist. Radiation optimization: All CT scans at this facility use at least one of these dose optimization techniques: automated exposure control; mA and/or kV adjustment per patient size (includes targeted exams where dose is matched to clinical indication); or iterative reconstruction. Contrast material: ISOUVE 370; Contrast volume: 80 ml; Contrast route: INTRAVENOUS (IV); COMPARISON: CT HEAD/BRAIN WO CON 02/27/2024 11:01 PM FINDINGS: ANTERIOR CIRCULATION: Right internal carotid artery: Intracranial segment is patent with no significant stenosis or occlusion. No aneurysm. Right middle cerebral artery: No occlusion or significant stenosis. No aneurysm. Right anterior cerebral artery: No occlusion or significant stenosis. No aneurysm. Left internal carotid artery: Intracranial segment is patent with no significant stenosis. No aneurysm. Left middle cerebral artery: No occlusion or significant stenosis. No aneurysm. Left anterior cerebral artery: No occlusion or significant stenosis. No aneurysm. POSTERIOR CIRCULATION: Right vertebral artery: No occlusion or significant stenosis. No aneurysm. Left vertebral artery: No occlusion or significant stenosis. No aneurysm. Basilar artery: No occlusion or significant stenosis. No aneurysm. Right posterior cerebral artery: No occlusion or significant stenosis. No aneurysm. Left posterior cerebral artery: No occlusion or significant stenosis. No aneurysm. Veins: There is no venous thrombosis. Brain: Normal. No hemorrhage. Unremarkable white matter. No mass effect. Cerebral ventricles: Normal. No ventriculomegaly. Bones/joints: Unremarkable. No acute fracture. Soft tissues: Unremarkable. IMPRESSION: No evidence for a embolism, dissection, aneurysm, or venous thrombosis. There is no significant stenosis.
--- NOTE | 2024-02-27 22:50 | ECG_ITS ---
APPROVED REPORT Exam: Resting ECG HR:89 bpm ECG Measurements Heart Rate 89 AXES [place] 174 P 60 QRSd 81 QRS 44 QT 349 T 53 QTc 396 Conclusion SINUS RHYTHM POSSIBLE LEFT ATRIAL ENLARGEMENT [-0.1mV P-WAVE IN V1/V2] POSSIBLE RIGHT VENTRICULAR CONDUCTION DELAY [RSR (QR) IN V1/V2] SEPTAL MYOCARDIAL INFARCTION , OF INDETERMINATE AGE [40+ ms Q WAVE IN V1/V2] ABNORMAL ECG No STEMI Electronically signed by : JOSE JUAN KEVIN, 02/28/2024 07:17:22
--- NOTE | 2024-02-27 22:51 | ED_ITS ---
Discharge Plan Disposition Patient Disposition: Xfer Short-Term Hosp Condition: Fair Prescriptions Prescriptions: No Action azithromycin [Zithromax] 250 mg tablet 250 mg PO UD DOSE PK Qty: 6 0RF Rx Instructions: Take two (2) tablets today, then one (1) tablet days #2 thru #5 benzonatate 100 mg capsule 100 mg PO TIDP PRN (Reason: Cough) Qty: 30 0RF methylprednisolone 4 mg Tablets,Dose Pack 4 mg PO DIRECTED 6 Days Qty: 21 0RF Rx Instructions: Take 1 pack as directed for 6 days Referrals Follow up/Referrals: Kristian Alvares MD [Primary Care Provider] - See instructions Clinical Impressions Clinical Impression: Facial paralysis/[place] palsy Stand Alone Forms Stand Alone Forms: Transfer Record - ED Print Language Print Language: Danish Discharge ED Provider: Corey Maloney General Adult HPI <Teresita Kc DO - Last Filed: 02/27/24 23:00> General Chief complaint: Weakness Stated complaint: facil numbness on left side Time Seen by Provider: 02/27/24 22:38 Mode of Arrival: Ambulatory Source of Information: Patient Limitations: No Limitations Description of Symptoms (Recalled from ER Triage Doc. by RN): Patient ambulatory to ED with complaints of left sided facial heaviness. She states that she woke up this am and was unable close left eye completely. She states that when she drinks out of a straw shes feels as if the left side of her mouth isnt able to move. Patient without slurred speech or unilateral weakness. NIH 3. History of Present Illness HPI narrative: This patient is a 43-year-old female who has a history of anxiety/depression but is not on medications presenting to the emergency department for evaluation with concern for left-sided facial heaviness, difficulty moving her left side of her face, difficulty closing her left eye, and left-sided facial numbness. She denies any other neurologic symptoms, such as headache, vision changes, balance issues, arm or leg numbness/tingling/weakness, or any other neurologic deficits. She notes that she first noticed the symptoms when she woke up this morning. She was normal when she went to bed last night. She notes that she was recently sick with a sinus infection, and I do note [facility] evaluation 02/13/2024 for sinusitis. Patient denies any known tick bites or exposures, and she does not spend a lot of time outdoors. No history of shingles. No other concerns noted at this time. Patient denies any known cardiovascular history or significant past medical history. No significant family history noted. She does vape but no other substance use Related Data Previous Rx's ?Medication ?Instructions ?Recorded azithromycin 250 mg tablet 250 mg PO UD DOSE PK #6 tabs 02/13/24 (Zithromax) benzonatate 100 mg capsule 100 mg PO TIDP PRN Cough #30 caps 02/13/24 methylprednisolone 4 mg tablets in 4 mg PO DIRECTED 6 days #21 tabs 02/13/24 a dose pack Allergies Allergy/AdvReac Type Severity Reaction Status Date / Time No Known Allergies Allergy Verified 08/14/22 14:54 [facility] <Teresita Kc DO - Last Filed: 02/27/24 23:00> [facility] Disclaimer: The information contained in this section may have been updated after the patient was seen, as this information can be updated by other users. Medical History Pneumonia due to COVID-19 virus Exposure to COVID-19 virus Viral syndrome Atypical chest pain Upper respiratory infection Abscessed tooth Infected dental carries Vomiting and diarrhea Dehydration Weakness Bronchitis Social History Smoking Status: Current every day smoker tobacco type: cigarettes packs per day: 1 second hand exposure: Yes alcohol intake: never current occupational status: other Travel in the last 8 weeks: None housing: house Have you lived/traveled outside [place] in past 30 days?: No Contact w/someone who lives/traveled outside US past 30 days?: No Exposure to someone with infectious disease in past 14 days?: No Do you have a fever (greater than 100.4 F or 38 C)?: No Have you tested positive for COVID-19: No Exposed to someone with COVID-19 in past 14 days?: No Do you have a sore throat?: No Do you have a cough?: No Do you have any weakness?: No Do you have any diarrhea?: No Are you experiencing any unusual bleeding?: No Do you have any muscle aches/pain?: No Do you have any abdominal pain?: No Are you experiencing loss of taste or smell?: No Other Medical History Have you received the Flu Vaccine for this season: No Have you received the Pneumonia Vaccine: No <Teresita Kc DO - Last Filed: 02/27/24 23:00> ROS Obtained: Yes All systems reviewed & no additional complaints except as documented Physical Exam <Teresita KcDO - Last Filed: 02/27/24 23:00> General General appearance: alert and in no apparent distress Head Head exam: atraumatic and normocephalic Eye Eye exam: Present normal appearance, PERRL and EOMI ENT ENT exam: Present normal exam, normal oropharynx, mucous membranes moist and normal external ear exam Neck Neck exam: Present normal inspection, full ROM and trachea midline; Absent tenderness Chest Chest inspection: Present normal inspection and symmetric chest wall rise; Absent tenderness Respiratory Respiratory exam: Present normal lung sounds bilaterally; Absent respiratory distress, wheezes, stridor or accessory muscle use Cardiovascular Cardiovascular exam: Present regular rate and normal rhythm Abdominal Exam Abdominal exam: Present soft; Absent distention, tenderness or guarding Extremities Exam Extremities exam: Present normal inspection, full ROM and normal capillary refill; Absent tenderness or edema Back Exam Back exam: Present normal inspection and full ROM; Absent tenderness Neurological Exam Neurological exam: Present alert, oriented X3, normal gait, motor sensory deficit and other (Left-sided facial droop with subjective decrease in sensation of the entire left side of the face. She does have some movement of the forehead on the left side, but it is decreased. Given this, given her NIH stroke scale of 3. No other focal neurologic deficits); Absent CN II-XII intact Psychiatric Psychiatric exam: Present normal affect and normal mood Skin Skin exam: Present warm and dry Medical Decision Making <Teresita Kc DO - Last Filed: 02/27/24 23:00> Medical Records Medical records reviewed: Yes I reviewed the patient's medical records. Screening: Per USPSTF and CDC recommendations, given the prevalence of disease in our region, it is our hospital?s policy to screen for HIV and viral Hepatitis for all patients aged 18 and over and those with ongoing risk factors. Randal Inquiry Pt receiving controlled substance: No Vital Signs: 02/27/24 22:34 02/28/24 01:54 Temperature 98.1 F 98.2 F Temperature Source Oral Oral Pulse Rate 85 Pulse Rate [Right] 113 H Respiratory Rate 17 16 Blood Pressure 118/84 Blood Pressure [Right Arm] 160/100 H Blood Pressure Mean [Right Arm] 120 Blood Pressure Position [Right Arm] Sitting 02 Sat by Pulse Oximetry 99 Oxygen Delivery Method Room Air Room Air Lab Data Lab results reviewed: Yes I reviewed the patient's lab results. Lab Results 02/27/24 22:43: WBC 8.8, RBC 4.44, Hgb 13.0, Hct 38.7, MCV 87.2, MCH 29.3, MCHC 33.6, RDW 11.8, Plt Count 306, MPV 10.5 H, Neut % (Auto) 59.6, Lymph % (Auto) 26.5, Pender % (Auto) 8.3, Eos % (Auto) 4.7, Baso % (Auto) 0.7, Neut # (Auto) 5.3, Lymph # (Auto) 2.3, Pender # (Auto) 0.7, Eos # (Auto) 0.4, Baso # (Auto) 0.1, PT 10.9, INR 0.97, APTT 26.6, Sodium 137, Potassium 3.5, Chloride 104, Carbon Dioxide 27, Anion Gap 9.5, BUN 10, Creatinine 0.90, Estimated Creat Clear 94, Estimated GFR 69, Est GFR ( Amer) 83, Glucose 114 H, Calcium 9.8, Total Bilirubin 0.6, AST 33, ALT 24, Alkaline Phosphatase 110, Troponin I < 0.01, Total Protein 7.0, Albumin 4.3, Globulin 2.7, Albumin/Globulin Ratio 1.6, T riglycerides 171 H, Cholesterol 186, LDL Cholesterol Direct 94.51 L, VLDL Cholesterol 34, HDL Cholesterol 53, Cholesterol/HDL Ratio 3.5, TSH 1.12, Thyroxine (T4) 9.5, HCG, Quant < 2, Plasma/Serum Alcohol < 10, HIV Ag/Ab Combo Qual Negative 02/27/24 23:57: Urine Color Yellow, Urine Appearance Clear, Urine pH 7.0, Ur Specific [place] 1.010, Urine Protein Negative, Urine Glucose (UA) Negative, Urine Ketones Negative, Urine Blood Negative, Urine Nitrate Negative, Urine Bilirubin Negative, Urine Urobilinogen 0.2, Ur Leukocyte Esterase Negative, Urine RBC None, Urine WBC None, Ur Squamous Epith Cells Occasional, Urine Bacteria None, Urine Opiates Screen Negative, Urine Methadone Screen Negative, Ur Barbituates Screen Negative, Ur Phencyclidine Scrn Negative, Ur Amphetamines Screen Negative, U Benzodiazepines Scrn Negative, Urine Cocaine Screen Negative, U Marijuana (THC) Screen Negative 02/28/24 01:46: Troponin I < 0.01 02/27/24 22:43 02/27/24 22:43 Orders (Tests/Meds): ED MEDICATIONS Discontinued Medications Generic Name Dose Route Start Last Admin Trade Name Freq PRN Reason Stop Dose Admin Iopamidol 80 ml 02/27/24 23:16 02/27/24 23:17 Iopamidol-370 (76%);100ml Bottle IV 02/27/24 23:17 80 ml ONCE ONE Administration Sodium Chloride 10 ml 02/27/24 22:38 Sodium Chloride 0.9% 10ml Flush Syringe IV 03/28/24 22:37 NEEDED PRN Maintain IV Site Sodium Chloride 50 ml 02/27/24 23:16 02/27/24 23:17 0.9 % Sodium Chloride 50 Ml Vial IV 02/27/24 23:17 50 ml ONCE ONE Administration Sodium Chloride 10 ml 02/27/24 23:16 02/27/24 23:17 Sodium Chloride 0.9% 10ml Syr (Rad Only) IV 03/28/24 23:15 10 ml NEEDED PRN Administration Maintain IV Site ORDERS Category Date Time Status CT angio head Stat Cat Scan 02/27/24 22:[address] angio neck Stat Cat Scan 02/27/24 22:[address] head/brain wo con Stat Cat Scan 02/27/24 22:38 Completed XR chest portable Stat Exams 02/27/24 22:38 Completed Activated Partial Thrombo Time Stat Lab 02/27/24 22:43 Completed Complete Blood Count Auto Diff Stat Lab 02/27/24 22:43 Completed Comprehensive Metabolic Panel Stat Lab 02/27/24 22:43 Completed Drug Screen,Urine Stat Lab 02/27/24 23:57 Completed Ethyl Alcohol Stat Lab 02/27/24 22:43 Completed HCG,Quantitative Stat Lab 02/27/24 22:43 Completed HIV Combo Stat Lab 02/27/24 22:43 Completed Hep C Ab with Reflex to RNA Stat Lab 02/27/24 22:43 Received Lipid Panel Stat Lab 02/27/24 22:43 Completed Lyme B. burgdorferi PCR Blood Stat Lab 02/27/24 23:20 Received Prothrombin Time INR Stat Lab 02/27/24 22:43 Completed T4 (Thyroxine) Stat Lab 02/27/24 22:43 Completed TSH [Thyroid Stimulating Hormone] Stat Lab 02/27/24 22:43 Completed Troponin I Q3H Lab 02/28/24 01:46 Completed Troponin I Stat Lab 02/27/24 22:43 Completed Urinalysis and Microscopic Stat Lab 02/27/24 23:57 Completed ECG Data Tracing #1: I reviewed this ECG and interpreted as documented below: Normal sinus rhythm with a ventricular rate of [address] changes concerning for ischemia. Normal axis and intervals. ECG initial impression date: 02/27/24 ECG initial impression time: 10:51 Medical Decision Narrative: In summary, this patient is a 43-year-old female presenting to the Emergency Department for evaluation of left-sided facial heaviness, difficulty moving the left side of her face, and left-sided facial numbness. Differential diagnoses considered include but are not limited to Olmedo's palsy, Lyme disease, brain lesion, CVA, Almaz Hanks syndrome, Guillain-Lyle? syndrome, MS, venous sinus thrombosis. Ruling out the most morbid conditions drove assessment. It should be noted patient's history includes vaping, anxiety, depression which are not at goal therapy. This complicates all aspects of care by increasing patient's risk for morbidity. I reviewed patient's past medical records and noted recent evaluation in [facility] 02/13/2024 for sinus infection as detailed in HPI. On exam, the patient is sitting upright in no acute distress. She has left- sided facial droop and sensory deficit of the left face with subjective decrease in sensation, but otherwise she is completely neurologically intact. I favor Olmedo's palsy as a diagnosis in this patient, but will obtain neuroimaging to further work this up. Last known normal was last night before bed. Given this, patient presents outside of tPA/TNK window. Workup included emergent stroke protocol scans. EKG obtained was reassuring. Patient care signed out to the oncoming provider, Dr. Maloney, at 2300 pending stroke workup. <Corey Maloney MD - Last Filed: 02/28/24 03:23> Vital Signs: 02/27/24 22:34 02/28/24 01:54 Temperature 98.1 F 98.2 F Temperature Source Oral Oral Pulse Rate 85 Pulse Rate [Right] 113 H Respiratory Rate 17 16 Blood Pressure 118/84 Blood Pressure [Right Arm] 160/100 H Blood Pressure Mean [Right Arm] 120 Blood Pressure Position [Right Arm] Sitting 02 Sat by Pulse Oximetry 99 Oxygen Delivery Method Room Air Room Air Lab Data Lab Results 02/27/24 22:43: WBC 8.8, RBC 4.44, Hgb 13.0, Hct 38.7, MCV 87.2, MCH 29.3, MCHC 33.6, RDW 11.8, Plt Count 306, MPV 10.5 H, Neut % (Auto) 59.6, Lymph % (Auto) 26.5, Pender % (Auto) 8.3, Eos % (Auto) 4.7, Baso % (Auto) 0.7, Neut # (Auto) 5.3, Lymph # (Auto) 2.3, Pender # (Auto) 0.7, Eos # (Auto) 0.4, Baso # (Auto) 0.1, PT 10.9, INR 0.97, APTT 26.6, Sodium 137, Potassium 3.5, Chloride 104, Carbon Dioxide 27, Anion Gap 9.5, BUN 10, Creatinine 0.90, Estimated Creat Clear 94, Estimated GFR 69, Est GFR ( Amer) 83, Glucose 114 H, Calcium 9.8, Total Bilirubin 0.6, AST 33, ALT 24, Alkaline Phosphatase 110, Troponin I < 0.01, Total Protein 7.0, Albumin 4.3, Globulin 2.7, Albumin/Globulin Ratio 1.6, T riglycerides 171 H, Cholesterol 186, LDL Cholesterol Direct 94.51 L, VLDL Cholesterol 34, HDL Cholesterol 53, Cholesterol/HDL Ratio 3.5, TSH 1.12, Thyroxine (T4) 9.5, HCG, Quant < 2, Plasma/Serum Alcohol < 10, HIV Ag/Ab Combo Qual Negative 02/27/24 23:57: Urine Color Yellow, Urine Appearance Clear, Urine pH 7.0, Ur Specific [place] 1.010, Urine Protein Negative, Urine Glucose (UA) Negative, Urine Ketones Negative, Urine Blood Negative, Urine Nitrate Negative, Urine Bilirubin Negative, Urine Urobilinogen 0.2, Ur Leukocyte Esterase Negative, Urine RBC None, Urine WBC None, Ur Squamous Epith Cells Occasional, Urine Bacteria None, Urine Opiates Screen Negative, Urine Methadone Screen Negative, Ur Barbituates Screen Negative, Ur Phencyclidine Scrn Negative, Ur Amphetamines Screen Negative, U Benzodiazepines Scrn Negative, Urine Cocaine Screen Negative, U Marijuana (THC) Screen Negative 02/28/24 01:46: Troponin I < 0.01 Orders (Tests/Meds): ED MEDICATIONS Discontinued Medications Generic Name Dose Route Start Last Admin Trade Name Jammie PRN Reason Stop Dose Admin Iopamidol 80 ml 02/27/24 23:16 02/27/24 23:17 Iopamidol-370 (76%);100ml Bottle IV 02/27/24 23:17 80 ml ONCE ONE Administration Sodium Chloride 10 ml 02/27/24 22:38 Sodium Chloride 0.9% 10ml Flush Syringe IV 03/28/24 22:37 NEEDED PRN Maintain IV Site Sodium Chloride 50 ml 02/27/24 23:16 02/27/24 23:17 0.9 % Sodium Chloride 50 Ml Vial IV 02/27/24 23:17 50 ml ONCE ONE Administration Sodium Chloride 10 ml 02/27/24 23:16 02/27/24 23:17 Sodium Chloride 0.9% 10ml Syr (Rad Only) IV 03/28/24 23:15 10 ml NEEDED PRN Administration Maintain IV Site ORDERS Category Date Time Status CT angio head Stat Cat Scan 02/27/24 22:[address] angio neck Stat Cat Scan 02/27/24 22:[address] head/brain wo con Stat Cat Scan 02/27/24 22:38 Completed XR chest portable Stat Exams 02/27/24 22:38 Completed Activated Partial Thrombo Time Stat Lab 02/27/24 22:43 Completed Complete Blood Count Auto Diff Stat Lab 02/27/24 22:43 Completed Comprehensive Metabolic Panel Stat Lab 02/27/24 22:43 Completed Drug Screen,Urine Stat Lab 02/27/24 23:57 Completed Ethyl Alcohol Stat Lab 02/27/24 22:43 Completed HCG,Quantitative Stat Lab 02/27/24 22:43 Completed HIV Combo Stat Lab 02/27/24 22:43 Completed Hep C Ab with Reflex to RNA Stat Lab 02/27/24 22:43 Received Lipid Panel Stat Lab 02/27/24 22:43 Completed Lyme B. burgdorferi PCR Blood Stat Lab 02/27/24 23:20 Received Prothrombin Time INR Stat Lab 02/27/24 22:43 Completed T4 (Thyroxine) Stat Lab 02/27/24 22:43 Completed TSH [Thyroid Stimulating Hormone] Stat Lab 02/27/24 22:43 Completed Troponin I Q3H Lab 02/28/24 01:46 Completed Troponin I Stat Lab 02/27/24 22:43 Completed Urinalysis and Microscopic Stat Lab 02/27/24 23:57 Completed Medical Decision Narrative: In summary, this patient is a 43-year-old female presenting to the Emergency Department for evaluation of left-sided facial heaviness, difficulty moving the left side of her face, and left-sided facial numbness. Differential diagnoses considered include but are not limited to Olmedo's palsy, Lyme disease, brain lesion, CVA, Mentcle Hanks syndrome, Guillain-Lyle? syndrome, MS, venous sinus thrombosis. Ruling out the most morbid conditions drove assessment. It should be noted patient's history includes vaping, anxiety, depression which are not at goal therapy. This complicates all aspects of care by increasing patient's risk for morbidity. I reviewed patient's past medical records and noted recent evaluation in [facility] 02/13/2024 for sinus infection as detailed in HPI. On exam, the patient is sitting upright in no acute distress. She has left- sided facial droop and sensory deficit of the left face with subjective decrease in sensation, but otherwise she is completely neurologically intact. I favor Olmedo's palsy as a diagnosis in this patient, but will obtain neuroimaging to further work this up. Last known normal was last night before bed. Given this, patient presents outside of tPA/TNK window. Workup included emergent stroke protocol scans. EKG obtained was reassuring. Patient care signed out to the oncoming provider, Dr. Maloney, at 2300 pending stroke workup. Haider: Upon my assumption of care I agree with the assessment and plan from Dr. Kc. Patient has obvious forehead sparing Olmedo's palsy. I agree with her exam. Patient understands why she is going for CT scans. Labs reviewed demonstrating no leukocytosis or anemia, platelets normal, PT/INR and APTT normal, CMP nonactionable, UA negative for findings of infection, test negative, TSH and T4 normal. CT head and CTA head and neck all personally interpreted do not demonstrate acute intracranial abnormality such as bleed, mass, no large vessel occlusion appreciated. See radiology reads for full interpretations. Once radiology reads have been completed, I reviewed these and they agree with my read. Images were shared with [facility] and I spoke with the school community relations coordinator, DONALD Lugo, at [phone] regarding patient's symptoms and imaging. He accepted the patient for direct admission under Dr. Tello. Patient will go via S ambulance transfer. Patient agreeable to this plan and understands the reasons for transfer. She was transferred in stable condition. Critical Care <Teresita Kc, DO - Last Filed: 02/27/24 23:00> Critical Care Time Critical Care Time: No
[2024-02-27 22:57] LABS: Basophils # 0.1 K/mm3 (0-0.2); Basophils % 0.7 % (0.1-2.0); Eosinophils # 0.4 K/mm3 (0.0-0.4); Eosinophils % 4.7 % (0.1-12.0); Hematocrit 38.7 % (37.0-47.0); Lymphocytes # 2.3 K/mm3 (0.7-4.5); Lymphocytes % 26.5 % (10-50); Mean Corpuscular HGB Conc 33.6 g/dL (31.8-35.4); Mean Corpuscular Hemoglobin 29.3 pg (27.0-31.2); Mean Corpuscular Volume 87.2 fl (81-99); Mean Platelet Volume 10.5 fl (7.4-10.4); Monocytes # 0.7 K/mm3 (0.1-1.0); Monocytes % 8.3 % (1.7-9.3); Neutrophils # 5.3 K/mm3 (1.8-7.8); Neutrophils % 59.6 % (37.0-80.0); Platelet Count 306 K/mm3 (142-424); Red Blood Count 4.44 M/mm3 (4.20-5.40); Red Cell Distribution Width 11.8 % (11.5-17.5); White Blood Count 8.8 K/mm3 (4.8-10.8)
[2024-02-27 22:59] LABS: Albumin Level 4.3 g/dl (3.5-5.0); Chloride 104 mmol/L (98-107); Potassium 3.5 mmoL/L (3.5-5.1); Sodium 137 mmol/L (136-145)
[2024-02-27 23:02] LABS: Alanine Aminotransferase 24 U/L (12-78); Albumin/Globulin Ratio 1.6 (1.1-1.8); Alkaline Phosphatase 110 U/L (38-126); Anion Gap 9.5 mEq/L (5-15); Aspartate Amino Transferase 33 U/L (14-36); Bilirubin,Total 0.6 mg/dl (0.2-1.3); Blood Urea Nitrogen 10 mg/dl (7-17); Calcium 9.8 mg/dl (8.4-10.2); Carbon Dioxide 27 mmol/L (22.0-30.0); Cholesterol 186 mg/dl (140-200); Creatinine Clearance Estimated 94 mL/min (50-200); Estimated Glomerular Filt Rate 69 ml/min (>60); GFR (African American) 83 ML/MIN (>60); Globulin 2.7 g/dL (1.3-3.2); Glucose 114 mg/dl (74-100); Triglycerides 171 mg/dl (30-150); VLDL Cholesterol 34 mg/dL (0-40)
[2024-02-27 23:03] LABS: Chol/HDL Ratio 3.5 (1-3.5); HDL Cholesterol 53 mg/dl (40-60)
[2024-02-27 23:06] LABS: Ethyl Alcohol < 10 mg/dl (0-10)
[2024-02-27 23:13] LABS: Activated Partial Thrombo Time 26.6 seconds (22.8-30.6); INR 0.97 (0.9-1.1); Prothrombin Time 10.9 seconds (10.1-12.5)
[2024-02-27 23:14] LABS: Direct LDL Cholesterol 94.51 mg/dL (100-129)
[2024-02-27] MEDS: 0.9 % SODIUM CHLORIDE 50 ML VIAL IV (23:17)
[2024-02-27] MEDS: IOPAMIDOL-370 (76%);100ML BOTTLE 80 ML IV (23:17)
[2024-02-27] MEDS: SODIUM CHLORIDE 0.9% 10ML SYR (RAD ONLY) 10 ML IV (23:17)
[2024-02-27 23:18] LABS: Troponin I < 0.01 ng/ml (0.00-0.034)
[2024-02-27 23:22] LABS: T4 (Thyroxine) 9.5 ug/dl (5.53-11.0)
[2024-02-27 23:23] LABS: HCG,Quantitative < 2 mIU/ml (0-5.42)
[2024-02-27 23:36] LABS: Thyroid Stimulating Hormone 1.12 uIU/mL (0.465-4.68)
[2024-02-27 23:53] LABS: HIV Combo NEGATIVE (Negative)
[2024-02-28 00:03] LABS: Microscopic, Urine URINE MICROSCOPIC (MICROSCOPIC)
[2024-02-28 00:18] LABS: Appearance,Urine CLEAR (Clear); Bilirubin,Urine Negative (Negative); Blood, Urine Negative (Negative); Color,Urine YELLOW (Yellow); Glucose,Urine (UA) Negative (Negative); Ketones,Urine Negative (Negative); Leukocyte Esterase,Urine Negative (Negative); Nitrate,Urine Negative (Negative); Protein,Urine Negative (Negative); Urobilinogen,Urine 0.2 EU/dl (0.2)
[2024-02-28 00:49] LABS: Squamous Epithelial Cell,Urine Occasional #/hpf (0-5)
[2024-02-28 00:59] LABS: Opiate Screen,Urine Negative ng/ml (<300)
[2024-02-28 01:00] LABS: Phencyclidine Screen,Urine Negative ng/ml (<25)
--- NOTE | 2024-02-28 01:00 | PC.NURSE ---
Paramjit Donaldson contacted [facility] in regards to transfer and provider on phone with the stroke navigator
[2024-02-28 01:21] LABS: Amphetamine/Metha Screen,Urine Negative ng/ml (<1000)
[2024-02-28 01:22] LABS: Barbiturates Screen,Urine Negative ng/ml (<200)
--- NOTE | 2024-02-28 01:39 | PC.NURSE ---
Called EMS for transfer
[2024-02-28 01:54] VITALS: BP 118/84; PULSE 85; RESP 16; TEMP 36.8; O2SAT 99
[2024-02-28 02:03] LABS: Cannabinoid Screen,Urine Negative ng/ml (<50)
[2024-02-28 02:04] LABS: Cocaine Screen,Urine Negative ng/ml (<300)
[2024-02-28 02:05] LABS: Benzodiazepines Screen,Urine Negative ng/ml (<200); Methadone Screen,Urine Negative ng/ml (<300)
[2024-02-28 02:24] LABS: Troponin I < 0.01 ng/ml (0.00-0.034)
[2024-03-02 14:28] LABS: HCV Ab Reactive (Non Reactive)
== END 2024-02-28 02:00 | disposition short-term general hospital (02) ==
PROVIDERS: Emergency Medicine; Emergency Provider Emergency Medicine; PCP Family Medicine
DX: G51.0 Bell's palsy (principal)
CPT/HCPCS: 70450; 70496; 70498; 71045; 80050; 80053; 80061; 80307; 80320; 81001; 84436; 84443; 84484; 84702; 85025; 85610; 85730; 86803; 87389; 87476; 93005; 99285; G0480; Q9967

== ENCOUNTER 2024-02-29 11:26 | Emergency (ER) | payer OTHER, SELFPAY ==
[2024-02-29 11:38] VITALS: BP 0/0; PULSE 0; RESP 0; TEMP -17.7; TEMP 0
--- NOTE | 2024-02-29 11:38 | PC.NURSE ---
ASSESSED PATIENT WITH MARZENA IYER. PATIENT WAS PUT ON APPROPRIATE MEDICATION BY ANOTHER DOCTOR. PAYROLL COORDINATOR AGREED WITH MEDS AND URGED PATIENT TO FOLLOW UP WITH PCP OR ER. PATIENT IS AGREEMENT BUT DID NOT WANT TO GO TO ER. PATIENT EDUCATED BY PAYROLL COORDINATOR THAT FACIAL TWITCHING WAS COMMON WITH HER DX. PATIENT UNDERSTOOD.
== END 2024-02-29 11:38 | disposition home or self-care (01) ==
LOC: UTC 11:27
PROVIDERS: Emergency Provider Nurse Practitioner Family; PCP Family Medicine
DX: Z53.21 Procedure and treatment not carried out due to patient leaving prior to being seen by health care provider (principal)

== ENCOUNTER 2024-03-28 14:46 | Emergency (ER) | payer OTHER, SELFPAY ==
[2024-03-28 14:48] VITALS: BP 160/104; PULSE 99; RESP 20; TEMP 36.4; O2SAT 100; BMI 26.4
--- NOTE | 2024-03-28 15:04 | PC.NURSE ---
Vision assessment performed. R 20/15, L 20/25, Both 20/20.
--- NOTE | 2024-03-28 15:05 | PC.NURSE ---
SUZANNE AT BEDSIDE
--- NOTE | 2024-03-28 15:22 | HMH.EDGENADL ---
Discharge Plan Disposition Patient Disposition: Home, Self-Care Condition: Good Prescriptions Prescriptions: New prednisone 20 mg tablet 20 mg PO BID 7 Days Qty: 14 0RF No Action azithromycin [Zithromax] 250 mg tablet 250 mg PO UD DOSE PK Qty: 6 0RF Rx Instructions: Take two (2) tablets today, then one (1) tablet days #2 thru #5 benzonatate 100 mg capsule 100 mg PO TIDP PRN (Reason: Cough) Qty: 30 0RF methylprednisolone 4 mg Tablets,Dose Pack 4 mg PO DIRECTED 6 Days Qty: 21 0RF Rx Instructions: Take 1 pack as directed for 6 days Referrals Follow up/Referrals: Valentino Godoy MD [Referring] - See instructions Activity Restrictions/Add. Instructions Additional Instructions/Restrictions: Follow with PCP if any further problems or concerns. Clinical Impressions Clinical Impression: Paresthesia of skin Print Language Print Language: Chadian Discharge ED Provider: Bhavesh Astudillo General Adult HPI <Sonya Damico (ED), SUPPORT GROUP MANAGER - Last Filed: 03/28/24 17:28> General Chief complaint: Recheck/Abnormal Lab/Rx Stated complaint: half of mouth hot, [place] Palsy+ Time Seen by Provider: 03/28/24 14:54 History of Present Illness HPI narrative: 43-year-old female presents to the ED today for complaint of left side of face and cheek feeling warm. States that she has no dental problems on that side. 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 She has completed her prednisone and valacyclovir for the Olmedo's palsy. She has followed with her primary for this. It has resolved for the most part. She still has some issues with her eye. She is not having vision changes. She says she is here today just because she is concerned about her face feeling hot on that side. She has no numbness or tingling. No pain. No fevers or chills. Her has COVID at this time. She is concerned also that this may be something dealing with COVID. No other symptoms noted. Related Data Previous Rx's ?Medication ?Instructions ?Recorded azithromycin 250 mg tablet 250 mg PO UD DOSE PK #6 tabs 02/13/24 (Zithromax) benzonatate 100 mg capsule 100 mg PO TIDP PRN Cough #30 caps 02/13/24 methylprednisolone 4 mg tablets in 4 mg PO DIRECTED 6 days #21 tabs 02/13/24 a dose pack prednisone 20 mg tablet 20 mg PO BID 7 days #14 tabs 03/28/24 Allergies Allergy/AdvReac Type Severity Reaction Status Date / Time No Known Allergies Allergy Verified 08/14/22 14:54 PFSH <Sonya Damico (ED), SUPPORT GROUP MANAGER - Last Filed: 03/28/24 17:28> [facility] Disclaimer: The information contained in this section may have been updated after the patient was seen, as this information can be updated by other users. Medical History Pneumonia due to COVID-19 virus Exposure to COVID-19 virus Viral syndrome Atypical chest pain Upper respiratory infection Abscessed tooth Infected dental carries Vomiting and diarrhea Dehydration Weakness Bronchitis Social History Smoking Status: Current every day smoker tobacco type: cigarettes packs per day: 1 second hand exposure: Yes alcohol intake: never current occupational status: other Travel in the last 8 weeks: None housing: house Have you lived/traveled outside [place] in past 30 days?: No Contact w/someone who lives/traveled outside US past 30 days?: No Exposure to someone with infectious disease in past 14 days?: No Do you have a fever (greater than 100.4 F or 38 C)?: No Have you tested positive for COVID-19: No Exposed to someone with COVID-19 in past 14 days?: No Do you have a sore throat?: No Do you have a cough?: No Do you have any weakness?: No Do you have any diarrhea?: No Are you experiencing any unusual bleeding?: No Do you have any muscle aches/pain?: No Do you have any abdominal pain?: No Are you experiencing loss of taste or smell?: No Other Medical History Have you received the Flu Vaccine for this season: No Have you received the Pneumonia Vaccine: No <Sonya Damico (ED), SUPPORT GROUP MANAGER - Last Filed: 03/28/24 17:28> ROS Obtained: Yes Systems reviewed as appropriate & no additional complaints except as documented Constitutional Constitutional: Reports as per HPI Physical Exam <Sonya Damico (ED), SUPPORT GROUP MANAGER - Last Filed: 03/28/24 17:28> General General appearance: alert and anxious Head Head exam: atraumatic and normocephalic Eye Eye exam: Present PERRL and EOMI ENT ENT exam: Present normal exam, normal oropharynx and mucous membranes moist Neck Neck exam: Present normal inspection Respiratory Respiratory exam: Present normal lung sounds bilaterally Cardiovascular Cardiovascular exam: Present regular rate and normal heart sounds Neurological Exam Neurological exam: Present alert and oriented X3 Psychiatric Psychiatric exam: Present anxious Skin Skin exam: Present warm and dry Medical Decision Making <Sonya Damico (ED), SUPPORT GROUP MANAGER - Last Filed: 03/28/24 17:28> Medical Records Screening: Per USPSTF and CDC recommendations, given the prevalence of disease in our region, it is our hospital?s policy to screen for HIV and viral Hepatitis for all patients aged 18 and over and those with ongoing risk factors. Randal Inquiry Pt receiving controlled substance: No Vital Signs: 03/28/24 14:48 03/28/24 15:29 03/28/24 15:40 Temperature 97.6 F Temperature Source Oral Pulse Rate 83 Pulse Rate [Right] 99 H Respiratory Rate 20 Blood Pressure 138/92 H Blood Pressure [Right Arm] 160/104 H Blood Pressure Mean [Right Arm] 122 Blood Pressure Source [Right Arm] Automatic Cuff 02 Sat by Pulse Oximetry 100 99 97 Oxygen Delivery Method Room Air Room Air Room Air 03/28/24 16:00 03/28/24 16:39 Temperature 98 F Temperature Source Pulse Rate 84 79 Pulse Rate [Right] Respiratory Rate 20 Blood Pressure 137/88 137/88 Blood Pressure [Right Arm] Blood Pressure Mean [Right Arm] Blood Pressure Source [Right Arm] 02 Sat by Pulse Oximetry 97 Oxygen Delivery Method Room Air Room Air Lab Data Lab Results 03/28/24 15:20: SARS-CoV-2 (PCR) Not detected, Influenza A Untype (PCR) Not detected, Influenza Type B (PCR) Not detected Orders (Tests/Meds): ORDERS Category Date Time Status Rapid PCR Covid and Flu A/B Stat Lab 03/28/24 15:20 Completed Medical Decision Narrative: Insert review patient is a 43-year-old female presenting to the emergency department for evaluation of left side of her face feeling warm. She does have history of Olmedo's palsy recently and is concerned that this is coming back.. Patient is hemodynamically stable and nontoxic-appearing upon arrival, afebrile. Differential diagnosis includes recurrence of Olmedo's palsy, COVID, viral illness among others. Workup will be conducted with flu COVID swab. Initial inventions include flu COVID swab. Upon repeat evaluation patient's pain is improved. <Bhavesh Astudillo MD - Last Filed: 04/05/24 00:45> Vital Signs: 03/28/24 14:48 03/28/24 15:29 03/28/24 15:40 Temperature 97.6 F Temperature Source Oral Pulse Rate 83 Pulse Rate [Right] 99 H Respiratory Rate 20 Blood Pressure 138/92 H Blood Pressure [Right Arm] 160/104 H Blood Pressure Mean [Right Arm] 122 Blood Pressure Source [Right Arm] Automatic Cuff 02 Sat by Pulse Oximetry 100 99 97 Oxygen Delivery Method Room Air Room Air Room Air 03/28/24 16:00 03/28/24 16:39 Temperature 98 F Temperature Source Pulse Rate 84 79 Pulse Rate [Right] Respiratory Rate 20 Blood Pressure 137/88 137/88 Blood Pressure [Right Arm] Blood Pressure Mean [Right Arm] Blood Pressure Source [Right Arm] 02 Sat by Pulse Oximetry 97 Oxygen Delivery Method Room Air Room Air Lab Data Lab Results 03/28/24 15:20: SARS-CoV-2 (PCR) Not detected, Influenza A Untype (PCR) Not detected, Influenza Type B (PCR) Not detected Orders (Tests/Meds): ORDERS Category Date Time Status Rapid PCR Covid and Flu A/B Stat Lab 03/28/24 15:20 Completed Medical Decision Narrative: Insert review patient is a 43-year-old female presenting to the emergency department for evaluation of left side of her face feeling warm. She does have history of Olmedo's palsy recently and is concerned that this is coming back.. Patient is hemodynamically stable and nontoxic-appearing upon arrival, afebrile. Differential diagnosis includes recurrence of Olmedo's palsy, COVID, viral illness among others. Workup will be conducted with flu COVID swab. Initial inventions include flu COVID swab. Upon repeat evaluation patient's pain is improved. I was consulted by the [facility], and we discussed the complexity of the problems being addressed.I approved the treatment and management plan for this patient?s care in the Emergency Department, thus performing a substantive portion of the medical decision making.Signed, Bhavesh Astudillo MD [facility] <Sonya Damico (ED), SUPPORT GROUP MANAGER - Last Filed: 03/28/24 17:28> Critical Care Time Critical Care Time: No
[2024-03-28 15:23] LABS: Coronavirus 19, PCR Not Detected (NotDetected); Influenza A, PCR Not Detected (NotDetected); Influenza B, PCR Not Detected (NotDetected)
[2024-03-28 15:29] VITALS: O2SAT 99
[2024-03-28 15:40] VITALS: BP 138/92; PULSE 83; O2SAT 97
[2024-03-28 16:00] VITALS: BP 137/88; PULSE 84; O2SAT 97
[2024-03-28 16:39] VITALS: BP 137/88; PULSE 79; RESP 20; TEMP 36.6; O2SAT 99
== END 2024-03-28 16:40 | disposition home or self-care (01) ==
PROVIDERS: Emergency Provider Emergency Medicine; PCP Nurse Practitioner
DX: R20.2 Paresthesia of skin (principal); F17.210 Nicotine dependence, cigarettes, uncomplicated; Z86.69 Personal history of other diseases of the nervous system and sense organs; Z20.822 Contact with and (suspected) exposure to COVID-19
CPT/HCPCS: 87636; 99283

== ENCOUNTER 2024-10-19 05:46 | Emergency (ER) | payer SELFPAY ==
[2024-10-19] VITALS (7 sets, daily range): BP systolic 92–144; BP diastolic 63–90; PULSE 57–86; RESP 16–17; TEMP 36.6; O2SAT 97–99; BMI 24.2
--- NOTE | 2024-10-19 05:51 | CT_ITS ---
FINAL REPORT TECHNIQUE: After the administration of oral and intravenous contrast, axial images were obtained through the abdomen and pelvis by computed tomography. The study was performed with techniques to keep radiation dose as low as reasonably achievable, (ALARA). Individual dose reduction techniques using automated exposure control or adjustment of mA and/or kV according to the patient's size were employed. CLINICAL HISTORY: low abd pain, stabbing, suprapubic area COMPARISON: 08/30/2021 FINDINGS: Abdomen: There is an 11 mm ovoid noncalcified nodule in the peripheral left lower lobe, which appears larger than seen on the prior exam of 2021. The liver parenchyma is homogeneous. The gallbladder is surgically absent. The spleen, pancreas, and adrenals appear unremarkable. There are low-attenuation foci in the kidneys bilaterally, measuring up to 1.3 cm in the right kidney and 2.1 cm in the left kidney. The previously seen left renal stone is no longer visualized. The aorta is normal in caliber. There is no free fluid or adenopathy. Pelvis: The appendix is not identified. The urinary bladder is incompletely distended. There is no free fluid or adenopathy. The uterus is present. IMPRESSION: No acute intra-abdominal process. 11 mm ovoid noncalcified nodule in the peripheral left lower lobe, which appears larger than seen on the prior CT. Would consider PET/CT for further evaluation. Reviewed, Interpreted and Dictated by Foreign Rodriguez MD Transcribed by Ange Cook Authenticated and [facility]
--- OUTSIDE RECORDS SUMMARY | 2024-10-19 05:55 | XMS_ITS | Clinical Summary ---
Author Organization [facility] are Address [address] [place] [id number] Phone Care Team Providers Care Marketing Technology Specialist Name Role Phone Unavailable Unavailable Conditions or Problems No information available. Medications No information available. Medications Administered No information available. Allergies, Adverse Reactions, Alerts No information available. Results No information available. Plan of Care No information available. Procedures No information available. Vital Signs No information available. Immunizations No information available. Advance Directives No information available.
--- OUTSIDE RECORDS SUMMARY | 2024-10-19 05:56 | XMS_ITS | Clinical Summary ---
Author Organization [facility] Address [address] [place] [address] Care Team Providers Care Clinical Education Academic Coordinator Name Role Phone Provider, No Known Primary Care Provider Unavail able Allergies No known active allergies Medications No known medications Active Problems Problem Noted Date Diagnosed Date Facial droop 02/28/2024 Olmedo's palsy 02/28/2024 Social History Tobacco Use Types Packs/Day Years Used Date Smoking Tobacco: Never Smokeless Tobacco: Current Tobacco Cessation:Ready to Q uit: No; Counseling Given: Yes Alcohol Use Standard Drinks/Week Comments Never 0 (1 standard drink = 0.6 oz pur e alcohol) AUDIT-C Answer Date Recorded Q1: How often do you have a drink containing alcohol? Never 02/28/2024 Q2: How many drinks containi ng alcohol do you have on a typical day when you are drinking? Patient does not drink Q3: How often do you have si x or more drinks on one occasion? Never 02/28/2024 Abuse Screen Answer Date Recorded Feels Unsafe at Home or Work/School no 02/28/2024 Feels Threatened by Someone no 02/01 Does Anyone Try to Keep You From Having Contact with Others or Doing Things Outside Your Home? no 02/28/2024 Physical Signs of Abuse Present no 02/28/2024 Housing Stability Answer Date Recorded Current Living Arrangements home 02/01 Potentially Unsafe Housing Conditions Not on alberto e 02/28/2024 Disabilities Answer Date Recorded Difficulty Concentrating, Remembering or Making Decisions no 02/28/2024 Difficulty Managing Errands Independently no 02/28/2024 Comments Unknown Sex and Gender Information Value Date Recorded Sex Assigned at Not on file Legal Sex Female 1:20 AM EST Gender Identity Not on file Sexual Orientation Not on file Last Filed Vital Signs Vital Sign Reading Time Taken Comments Blood Pressure 116/66 02/28/2024 3:46 PM EST Pulse 86 02/28/2024 3:46 PM EST Temperature 36.6 C (97.9 F) 02/28/2024 11:04 AM EST Respiratory Rate 18 02/28/2024 11:04 AM EST Oxygen Saturation 98% 02/28/2024 3:46 PM EST Inhaled Oxygen Concentration - - Weight 73.9 kg (163 lb) 02/28/2024 3:00 AM EST Height 165 cm (5' 4.96 ) 02/28/2024 3:00 AM EST Body Mass Index 27.16 02/28/2024 3:00 AM EST Plan of Treatment Health Maintenance Due Date Last Done Comments ANNUAL PHYSICAL 1982 Annual Gynecologic Pelvic an d Breast Exam 1982 HEPATITIS C SCREENING 1982 TDAP/TD VACCINES (1 - Tdap) 2001 MAMMOGRAM 2022 COVID-19 Vaccine ( - 2023-2 5 season) 2023 INFLUENZA VACCINE 12/01/2024 Pneumococcal Vaccine 0-49 Aged Out No longer eligible based on patient's age to complete this topic Insurance [facility] Advance Directives * CPR (Attempt to Resuscitate) (Latest Code Status on File) Date Activated Date Inactivated Comments 02/28/2024 4:35 AM 02/28/2024 7:28 PM Question Answer Comments Code Status (Patient has no pulse and is not breathing): CPR (Attempt to Resuscitate) Medical Interventions (Patie nt has pulse or is breathing): Full Support Level Of Support Discussed With: Patient Care Teams Clinical Education Academic Coordinator Relationship Specialty Start Date End Date Provider, [place] [address] PCP - General 02/28/24
--- NOTE | 2024-10-19 05:57 | HMH.EDGENADL ---
Discharge Plan Disposition Patient Disposition: Home, Self-Care Condition: Good Prescriptions Prescriptions: No Action prednisone 20 mg tablet 20 mg PO BID 7 Days Qty: 14 0RF azithromycin [Zithromax] 250 mg tablet 250 mg PO UD DOSE PK Qty: 6 0RF Rx Instructions: Take two (2) tablets today, then one (1) tablet days #2 thru #5 benzonatate 100 mg capsule 100 mg PO TIDP PRN (Reason: Cough) Qty: 30 0RF methylprednisolone 4 mg Tablets,Dose Pack 4 mg PO DIRECTED 6 Days Qty: 21 0RF Rx Instructions: Take 1 pack as directed for 6 days Referrals Follow up/Referrals: Sonya Damico APRN [Primary Care Provider, Medical] - See instructions Activity Restrictions/Add. Instructions Additional Instructions/Restrictions: Please return to the ER if you have any new or worsening symptoms. Clinical Impressions Clinical Impression: Abdominal pain, suprapubic Stand Alone Forms Stand Alone Forms: Work/School Release Instructions Patient Instructions: DI for Acute Abdominal Pain Print Language Print Language: Cameroonian Discharge ED Provider: Washington Borjas General Adult HPI <Corey Maloney MD - Last Filed: 10/19/24 07:09> General Chief complaint: Abdominal Pain Stated complaint: abd pain Time Seen by Provider: 10/19/24 05:51 History of Present Illness HPI narrative: 44-year-old female presents to the ER complaining of lower abdominal pain. Reportedly symptoms started in the last 24 hours and were initially intermittent, stabbing and she demonstrates to the suprapubic area. She states she woke up approximately 2-1/2 hours ago and at that time the pain was constant, she has not been able to get it to go away so she came to the ER for evaluation. She denies nausea, vomiting, diarrhea, or constipation. Yesterday she had normal bowel movement that was nonbloody, nonmelanotic. She denies dysuria or hematuria. States she felt off yesterday like she was coming down with something but never had a true fever and never seemed to really get sick besides this pain. She is not having any back pain, no radiation of the pain. She denies any chest pain or difficulty breathing, no headache or dizziness, no numbness, tingling, or weakness, no other complaints or concerns. Related Data Previous Rx's ?Medication ?Instructions ?Recorded azithromycin 250 mg tablet 250 mg PO UD DOSE PK #6 tabs 02/13/24 (Zithromax) benzonatate 100 mg capsule 100 mg PO TIDP PRN Cough #30 caps 02/13/24 methylprednisolone 4 mg tablets in 4 mg PO DIRECTED 6 days #21 tabs 02/13/24 a dose pack prednisone 20 mg tablet 20 mg PO BID 7 days #14 tabs 03/28/24 Allergies Allergy/AdvReac Type Severity Reaction Status Date / Time No Known Allergies Allergy Verified 08/14/22 14:54 PFSH <Corey Maloney MD - Last Filed: 10/19/24 07:09> PFS Disclaimer: The information contained in this section may have been updated after the patient was seen, as this information can be updated by other users. Medical History Pneumonia due to COVID-19 virus Exposure to COVID-19 virus Viral syndrome Atypical chest pain Upper respiratory infection Abscessed tooth Infected dental carries Vomiting and diarrhea Dehydration Weakness Bronchitis Social History Smoking Status: Current every day smoker tobacco type: cigarettes packs per day: 1 second hand exposure: Yes alcohol intake: never current occupational status: other Travel in the last 8 weeks?: None housing: house Have you lived/traveled outside [place] in past 30 days?: No Contact w/someone who lives/traveled outside [place] past 30 days?: No Exposure to someone with infectious disease in past 14 days?: No Do you have a fever (greater than 100.4 F or 38 C)?: No Have you tested positive for COVID-19?: No Exposed to someone with COVID-19 in past 14 days?: No Do you have a sore throat?: No Do you have a cough?: No Do you have any weakness?: No Do you have any diarrhea?: No Are you experiencing any unusual bleeding?: No Do you have any muscle aches/pain?: No Do you have any abdominal pain?: Yes Are you experiencing loss of taste or smell?: No Other Medical History Have you received the Flu Vaccine for this season: No Have you received the Pneumonia Vaccine: No <Corey Maloney MD - Last Filed: 10/19/24 07:09> ROS Obtained: Yes Systems reviewed as appropriate & no additional complaints except as documented Per HPI Physical Exam <Corey Maloney MD - Last Filed: 10/19/24 07:09> General General appearance: alert and in no apparent distress Head Head exam: atraumatic and normocephalic Eye Eye exam: Present PERRL and EOMI ENT ENT exam: Present mucous membranes moist Neck Neck exam: Present normal inspection and full ROM Chest Chest inspection: Present symmetric chest wall rise Respiratory Respiratory exam: Present normal lung sounds bilaterally; Absent respiratory distress, wheezes or stridor Cardiovascular Cardiovascular exam: Present regular rate and normal rhythm Abdominal Exam Abdominal exam: Present soft and tenderness (Suprapubic area); Absent distention, guarding or rebound Extremities Exam Extremities exam: Present full ROM Back Exam Back exam: Absent tenderness, CVA tenderness (R) or CVA tenderness (L) Neurological Exam Neurological exam: Present alert and oriented X3; Absent motor sensory deficit Psychiatric Psychiatric exam: Present normal affect and normal mood Skin Skin exam: Present warm and dry Medical Decision Making <Corey Maloney MD - Last Filed: 10/19/24 07:09> Medical Records Medical records reviewed: Yes I reviewed the patient's medical records. Screening: Per USPSTF and CDC recommendations, given the prevalence of disease in our region, it is our hospital?s policy to screen for HIV and viral Hepatitis for all patients aged 18 and over and those with ongoing risk factors. MR Comment: Most recent evaluation in our system was March 2024 when patient was evaluated in the ER with abnormal feeling of the left side of the face. 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 Randal Inquiry Pt receiving controlled substance: No Vital Signs: 10/19/24 05:55 10/19/24 07:00 10/19/24 07:30 Temperature 97.8 F Temperature Source Oral Pulse Rate 79 61 Pulse Rate [Left Radial] 86 Respiratory Rate 16 16 Blood Pressure 103/64 L 101/66 L Blood Pressure [Right Arm] 144/90 H Blood Pressure Mean 77 Blood Pressure Mean [Right Arm] 108 Blood Pressure Source [Right Arm] Automatic Cuff Blood Pressure Position [Right Arm] Sitting 02 Sat by Pulse Oximetry 99 99 97 Oxygen Delivery Method Room Air Room Air Room Air 10/19/24 08:00 10/19/24 08:30 10/19/24 09:00 Temperature Temperature Source Pulse Rate 66 59 L 57 L Pulse Rate [Left Radial] Respiratory Rate 16 Blood Pressure 106/67 L 101/63 L 92/70 L Blood Pressure [Right Arm] Blood Pressure Mean Blood Pressure Mean [Right Arm] Blood Pressure Source [Right Arm] Blood Pressure Position [Right Arm] 02 Sat by Pulse Oximetry 98 97 97 Oxygen Delivery Method Room Air Lab Data Lab Results 10/19/24 05:05: WBC 7.1, RBC 4.55, Hgb 13.5, Hct 39.9, MCV 87.7, MCH 29.7, MCHC 33.8, RDW 11.9, Plt Count 312, MPV 10.7 H, Neut % (Auto) 67.2, Lymph % (Auto) 20.9, Darke % (Auto) 8.0, Eos % (Auto) 2.9, Baso % (Auto) 0.7, Neut # (Auto) 4.8, Lymph # (Auto) 1.5, Darke # (Auto) 0.6, Eos # (Auto) 0.2, Baso # (Auto) 0.1, PT 11.7, INR 1.06, Sodium 141, Potassium 3.3 L, Chloride 106, Carbon Dioxide 26, Anion Gap 12.3, BUN 8, Creatinine 0.80, Estimated Creat Clear 98, Estimated GFR 79, Est GFR ( Amer) 95, Glucose 98, Calcium 9.3, Total Bilirubin 1.0, AST 26, ALT 17, Alkaline Phosphatase 97, Total Protein 7.6, Albumin 4.8, Globulin 2.8, Albumin/Globulin Ratio 1.7, Lipase 114 10/19/24 05:59: Urine Color Yellow, Urine Appearance Clear, Urine pH 6.0, Ur Specific [place] 1.010, Urine Protein Negative, Urine Glucose (UA) Negative, Urine Ketones Negative, Urine Blood Negative, Urine Nitrate Negative, Urine Bilirubin Negative, Urine Urobilinogen 0.2, Ur Leukocyte Esterase Negative, Urine WBC 3-5, Ur Squamous Epith Cells 3-5, Urine Bacteria 1+, Urine Mucus 1+, Urine HCG, Qual Negative 10/19/24 06:08: Lactate 1.6 10/19/24 05:05 10/19/24 05:05 Orders (Tests/Meds): ED MEDICATIONS Discontinued Medications Generic Name Dose Route Start Last Admin Trade Name Freq PRN Reason Stop Dose Admin Lactated Ringer's 1,000 mls @ 999 mls/hr 10/19/24 05:57 10/19/24 07:15 Lactated Ringer's 1000 Ml Bag IV 10/19/24 06:57 Infused .Q1H1M ONE Infusion Iopamidol 75 ml 10/19/24 06:59 10/19/24 06:59 Iopamidol-370 (76%);100ml Bottle IV 10/19/24 07:00 75 ml ONCE ONE Administration Morphine Sulfate 4 mg 10/19/24 05:57 10/19/24 06:14 Morphine 4mg/Ml Syringe IV 10/19/24 05:58 4 mg ONCE ONE Administration Ondansetron HCl 4 mg 10/19/24 05:57 10/19/24 06:14 Ondansetron 4mg/2ml Vial IV 10/19/24 05:58 4 mg ONCE ONE Administration Sodium Chloride 10 ml 10/19/24 06:59 10/19/24 06:59 Sodium Chloride 0.9% 10ml Syr (Rad Only) IV 10/19/24 07:00 10 ml ONCE ONE Administration ORDERS Category Date Time Status CT abdomen pelvis w con Stat Cat Scan 10/19/24 05:51 Completed Complete Blood Count Auto Diff Stat Lab 10/19/24 05:05 Completed Comprehensive Metabolic Panel Stat Lab 10/19/24 05:05 Completed Lactic Acid Stat Lab 10/19/24 06:08 Completed Lipase Stat Lab 10/19/24 05:05 Completed Prothrombin Time INR Stat Lab 10/19/24 05:05 Completed Urinalysis and Microscopic Stat Lab 10/19/24 05:59 Completed Urine , HCG Qual. Stat Lab 10/19/24 05:59 Completed Medical Decision Narrative: In summary, this 44-year-old female presents to the emergency department today with sharp lower abdominal pain without dysuria or hematuria, no other associated symptoms. On initial evaluation patient is hemodynamically stable, afebrile, overall well-appearing, GCS 15, exam notable for suprapubic tenderness to palpation with no rebound or guarding, no peritonitic findings, no other abnormalities on exam. Differential diagnosis includes but is not limited to urinary tract infection, appendicitis, mesenteric adenitis, electrolyte abnormality, dehydration, muscle spasm, among others. Based on these concerns, I ordered serum labs, CT abdomen pelvis. Patient received IV fluids, morphine, Zofran initially for treatment. Labs personally reviewed demonstrate no leukocytosis or anemia, normal platelets, PT/INR normal, CMP with trace hypokalemia repleted with oral potassium, otherwise nonactionable. Lipase normal at 114 reassuring against pancreatitis. Lactate normal at 1.6. UA negative for findings of infection. CT abdomen pelvis personally interpreted does not demonstrate obvious acute intra-abdominal pathology on my initial interpretation though the uterus appears may be slightly thickened/inflamed, but radiology read is pending at this time. Patient handed off to Dr. Borjas in stable condition pending radiology read and disposition <Washington Borjas, DO - Last Filed: 10/19/24 09:51> Vital Signs: 10/19/24 05:55 10/19/24 07:00 10/19/24 07:30 Temperature 97.8 F Temperature Source Oral Pulse Rate 79 61 Pulse Rate [Left Radial] 86 Respiratory Rate 16 16 Blood Pressure 103/64 L 101/66 L Blood Pressure [Right Arm] 144/90 H Blood Pressure Mean 77 Blood Pressure Mean [Right Arm] 108 Blood Pressure Source [Right Arm] Automatic Cuff Blood Pressure Position [Right Arm] Sitting 02 Sat by Pulse Oximetry 99 99 97 Oxygen Delivery Method Room Air Room Air Room Air 10/19/24 08:00 10/19/24 08:30 10/19/24 09:00 Temperature Temperature Source Pulse Rate 66 59 L 57 L Pulse Rate [Left Radial] Respiratory Rate 16 Blood Pressure 106/67 L 101/63 L 92/70 L Blood Pressure [Right Arm] Blood Pressure Mean Blood Pressure Mean [Right Arm] Blood Pressure Source [Right Arm] Blood Pressure Position [Right Arm] 02 Sat by Pulse Oximetry 98 97 97 Oxygen Delivery Method Room Air Lab Data Lab Results 10/19/24 05:05: WBC 7.1, RBC 4.55, Hgb 13.5, Hct 39.9, MCV 87.7, MCH 29.7, MCHC 33.8, RDW 11.9, Plt Count 312, MPV 10.7 H, Neut % (Auto) 67.2, Lymph % (Auto) 20.9, Darke % (Auto) 8.0, Eos % (Auto) 2.9, Baso % (Auto) 0.7, Neut # (Auto) 4.8, Lymph # (Auto) 1.5, Darke # (Auto) 0.6, Eos # (Auto) 0.2, Baso # (Auto) 0.1, PT 11.7, INR 1.06, Sodium 141, Potassium 3.3 L, Chloride 106, Carbon Dioxide 26, Anion Gap 12.3, BUN 8, Creatinine 0.80, Estimated Creat Clear 98, Estimated GFR 79, Est GFR ( Amer) 95, Glucose 98, Calcium 9.3, Total Bilirubin 1.0, AST 26, ALT 17, Alkaline Phosphatase 97, Total Protein 7.6, Albumin 4.8, Globulin 2.8, Albumin/Globulin Ratio 1.7, Lipase 114 10/19/24 05:59: Urine Color Yellow, Urine Appearance Clear, Urine pH 6.0, Ur Specific [place] 1.010, Urine Protein Negative, Urine Glucose (UA) Negative, Urine Ketones Negative, Urine Blood Negative, Urine Nitrate Negative, Urine Bilirubin Negative, Urine Urobilinogen 0.2, Ur Leukocyte Esterase Negative, Urine WBC 3-5, Ur Squamous Epith Cells 3-5, Urine Bacteria 1+, Urine Mucus 1+, Urine HCG, Qual Negative 10/19/24 06:08: Lactate 1.6 Orders (Tests/Meds): ED MEDICATIONS Discontinued Medications Generic Name Dose Route Start Last Admin Trade Name Freq PRN Reason Stop Dose Admin Lactated Ringer's 1,000 mls @ 999 mls/hr 10/19/24 05:57 10/19/24 07:15 Lactated Ringer's 1000 Ml Bag IV 10/19/24 06:57 Infused .Q1H1M ONE Infusion Iopamidol 75 ml 10/19/24 06:59 10/19/24 06:59 Iopamidol-370 (76%);100ml Bottle IV 10/19/24 07:00 75 ml ONCE ONE Administration Morphine Sulfate 4 mg 10/19/24 05:57 10/19/24 06:14 Morphine 4mg/Ml Syringe IV 10/19/24 05:58 4 mg ONCE ONE Administration Ondansetron HCl 4 mg 10/19/24 05:57 10/19/24 06:14 Ondansetron 4mg/2ml Vial IV 10/19/24 05:58 4 mg ONCE ONE Administration Sodium Chloride 10 ml 10/19/24 06:59 10/19/24 06:59 Sodium Chloride 0.9% 10ml Syr (Rad Only) IV 10/19/24 07:00 10 ml ONCE ONE Administration ORDERS Category Date Time Status CT abdomen pelvis w con Stat Cat Scan 10/19/24 05:51 Completed Complete Blood Count Auto Diff Stat Lab 10/19/24 05:05 Completed Comprehensive Metabolic Panel Stat Lab 10/19/24 05:05 Completed Lactic Acid Stat Lab 10/19/24 06:08 Completed Lipase Stat Lab 10/19/24 05:05 Completed Prothrombin Time INR Stat Lab 10/19/24 05:05 Completed Urinalysis and Microscopic Stat Lab 10/19/24 05:59 Completed Urine , HCG Qual. Stat Lab 10/19/24 05:59 Completed Medical Decision Narrative: In summary, this 44-year-old female presents to the emergency department today with sharp lower abdominal pain without dysuria or hematuria, no other associated symptoms. On initial evaluation patient is hemodynamically stable, afebrile, overall well-appearing, GCS 15, exam notable for suprapubic tenderness to palpation with no rebound or guarding, no peritonitic findings, no other abnormalities on exam. Differential diagnosis includes but is not limited to urinary tract infection, appendicitis, mesenteric adenitis, electrolyte abnormality, dehydration, muscle spasm, among others. Based on these concerns, I ordered serum labs, CT abdomen pelvis. Patient received IV fluids, morphine, Zofran initially for treatment. Labs personally reviewed demonstrate no leukocytosis or anemia, normal platelets, PT/INR normal, CMP with trace hypokalemia repleted with oral potassium, otherwise nonactionable. Lipase normal at 114 reassuring against pancreatitis. Lactate normal at 1.6. UA negative for findings of infection. CT abdomen pelvis personally interpreted does not demonstrate obvious acute intra-abdominal pathology on my initial interpretation though the uterus appears may be slightly thickened/inflamed, but radiology read is pending at this time. Patient handed off to Dr. Borjas in stable condition pending radiology read and disposition Washington Borjas, I received care of this patient at shift change. At the time of shift change CT scan of the abdomen and pelvis was pending. CT resulted showing no acute findings within the abdomen or pelvis. The appendix is not identified. However, the patient does not have a leukocytosis and there is no secondary findings of appendicitis on this examination. Additionally, her urinalysis is reassuring that this is not a urinary tract infection. Our workup today has not revealed the cause of her abdominal pain, however, I have recommended that the patient continue to monitor her symptoms over the next few days and if her symptoms continue to worsen or persist she should return to the emergency department for further evaluation. At this time all questions have been answered and all parties are agreeable with the decision to discharge home Critical Care <Corey Maloney MD - Last Filed: 10/19/24 07:09> Critical Care Time Critical Care Time: No
[2024-10-19 06:01] LABS: Microscopic, Urine URINE MICROSCOPIC (MICROSCOPIC)
[2024-10-19 06:03] LABS: Bilirubin,Urine Negative (Negative); Color,Urine YELLOW (Yellow); Glucose,Urine (UA) Negative (Negative); Ketones,Urine Negative (Negative); Leukocyte Esterase,Urine Negative (Negative); PH,Urine 6.0 (5.0-8.5); Protein,Urine Negative (Negative); Specific Gravity, Urine 1.010 (1.005-1.030); Urobilinogen,Urine 0.2 EU/dl (0.2)
[2024-10-19 06:05] LABS: Urine Pregnancy, HCG Qual. Negative (Negative)
[2024-10-19] MEDS: LACTATED RINGERS 1000ML 1,000 ML 999 ML IV (06:13)
[2024-10-19] MEDS: ONDANSETRON 4MG/2ML VIAL 4 MG IV (06:14)
[2024-10-19] MEDS: MORPHINE 4MG/ML SYRINGE 4 MG IV (06:14)
[2024-10-19 06:17] LABS: Albumin Level 4.8 g/dl (3.5-5.0); Chloride 106 mmol/L (98-107); Sodium 141 mmol/L (136-145)
[2024-10-19 06:18] LABS: Hematocrit 39.9 % (37.0-47.0); Hemoglobin 13.5 g/dL (12.2-16.2); Immature Granulocytes % 0.3 %; Mean Corpuscular HGB Conc 33.8 g/dL (31.8-35.4); Mean Corpuscular Hemoglobin 29.7 pg (27.0-31.2); Mean Corpuscular Volume 87.7 fl (81-99); Nucleated Red Blood Cells % 0 %; Platelet Count 312 K/mm3 (142-424); Potassium 3.3 mmoL/L (3.5-5.1); Red Blood Count 4.55 M/mm3 (4.20-5.40); Red Cell Distribution Width-SD 38.3 fL; White Blood Count 7.1 K/mm3 (4.8-10.8)
[2024-10-19 06:18] LABS: Bacteria,Urine 1+ /lpf; Mucus,Urine 1+ /lpf
[2024-10-19 06:20] LABS: Alanine Aminotransferase 17 U/L (12-78); Albumin/Globulin Ratio 1.7 (1.1-1.8); Alkaline Phosphatase 97 U/L (38-126); Anion Gap 12.3 mEq/L (5-15); Aspartate Amino Transferase 26 U/L (14-36); Bilirubin,Total 1.0 mg/dl (0.2-1.3); Blood Urea Nitrogen 8 mg/dl (7-17); Carbon Dioxide 26 mmol/L (22.0-30.0); Creatinine Clearance Estimated 98 mL/min (50-200); Creatinine,Serum 0.80 mg/dl (0.52-1.04); Estimated Glomerular Filt Rate 79 ml/min (>60); GFR (African American) 95 ML/MIN (>60); Globulin 2.8 g/dL (1.3-3.2); Lipase 114 U/L (23-300); Total Protein,Serum 7.6 g/dl (6.3-8.2)
[2024-10-19 06:21] LABS: Calcium 9.3 mg/dl (8.4-10.2); Glucose 98 mg/dl (74-100)
[2024-10-19 06:24] LABS: INR 1.06 (0.9-1.1); Prothrombin Time 11.7 seconds (10.1-12.5)
[2024-10-19] MEDS: IOPAMIDOL-370 (76%);100ML BOTTLE 75 ML IV (06:59)
[2024-10-19] MEDS: SODIUM CHLORIDE 0.9% 10ML SYR (RAD ONLY) 10 ML IV (06:59)
--- NOTE | 2024-10-19 07:40 | PC.NURSE ---
Rounded on pt, currently resting in bed w/ support person at bedside. No needs @ this time. Updated on POC.
--- NOTE | 2024-10-19 09:26 | PC.NURSE ---
pt ambulatory to restroom without complication.
== END 2024-10-19 09:58 | disposition home or self-care (01) ==
PROVIDERS: Emergency Medicine; Emergency Provider Student in an Organized Health Care Education/Training Program; PCP Nurse Practitioner
DX: R10.30 Lower abdominal pain, unspecified (principal); F17.210 Nicotine dependence, cigarettes, uncomplicated
CPT/HCPCS: 74177; 80053; 81001; 81025; 83605; 83690; 85025; 85610; 96361; 96374; 96375; 99285; J2270; J2405; J7120; Q9967